=== PATIENT | female | born 1955 | race Caucasian/White ===

== ENCOUNTER 2020-10-21 11:06 | Outpatient (REF) | payer MEDICARE, OTHER, SELFPAY ==
[2020-10-21 11:24] LABS: MANUAL DIFF FLAG NO
[2020-10-21 12:04] LABS: Basophils Percent Auto 0.2 % (0-2); Eosinophils Absolute Auto 0.1 X10*3/uL (0.0-0.4); Hematocrit 40.4 % (37-47); Hemoglobin 12.9 g/dl (12.0-16.0); Imm Gran Abs Auto 0.01 X10*3/uL (0.00-0.03); Imm Gran Pct Auto 0.2 % (0.0-0.4); Lymphocytes Absolute Auto 2.1 X10*3/uL (1.2-4.9); Lymphocytes Percent Auto 48.8 % (20-40); Mean Corpuscular HGB Conc 31.9 g/dl (31.0-35.0); Mean Corpuscular Hemoglobin 30.2 pg (27.0-33.0); Mean Corpuscular Volume 94.6 fL (80-98); Monocytes Absolute Auto 0.3 X10*3/uL (0.1-1.2); Monocytes Percent Auto 5.8 % (2-11); Neutrophils Absolute Auto 1.8 X10*3/uL (2.0-8.3); Platelet Count 230 X10*3/uL (160-400); Red Blood Count 4.27 X10*6/uL (4.20-5.50); Red Cell Distribution Width 13.2 % (11.0-16.0); White Blood Count 4.3 X10*3/uL (4.8-10.8)
[2020-10-21 12:37] LABS: Glucose Urine UA NEG (NEG); Leukocyte Esterase Urine NEG (NEG); Nitrite Urine NEG (NEG); PH 7.5 (5.0-8.0); Urine Blood NEG (NEG); Urine Ketones NEG (NEG); Urine Protein NEG (NEG-TRACE)
[2020-10-21 12:40] LABS: Appearance Urine HAZY; Color Urine YELLOW
[2020-10-21 12:51] LABS: Alanine Aminotransferase 13 U/L (0-31); Albumin Level 4.1 g/dL (3.5-5.0); Alkaline Phosphatase 62 U/L (39-117); Anion Gap 11 (12-20); Aspartate Amino Transferase 17 U/L (5-31); Bilirubin Total 0.6 mg/dL (0.0-1.0); Blood Urea Nitrogen 12 mg/dL (9-16); Calcium 8.8 mg/dL (8.4-10.2); Carbon Dioxide 29 mmol/L (22-29); Chloride 107 mmol/L (96-108); Cholesterol 212 mg/dL; Estimated Glomerular Filt Rate > 60; Glucose Fasting 71 mg/dL (60-99); HDL Cholesterol 81 mg/dL; LDL Cholesterol Calculated 118 mg/dl; Potassium 4.1 mmol/L (3.3-5.1); Sodium 143 mmol/L (135-145); Total Protein 6.5 g/dL (6.5-8.0); Triglycerides 68 mg/dL
[2020-10-21 12:54] LABS: Vitamin D 25-OH Total 34.2 ng/mL (>30)
== END 2020-10-21 11:07 | disposition home or self-care (01) ==
LOC: HO.LNP 11:06
PROVIDERS: Visit Provider Internal Medicine
DX: D72.820 Lymphocytosis (symptomatic) (principal); E55.9 Vitamin D deficiency, unspecified
CPT/HCPCS: 80053; 80061; 81003; 82306; 85025

== ENCOUNTER 2021-03-10 06:20 | Day surgery (SDC) | payer MEDICARE, OTHER, SELFPAY ==
--- NOTE | 2021-03-07 08:12 | P.CONAN_ITS ---
Documented by User: Elle Melton NP 03/07/21 08:13 HPI - Anesthesia Eval Consult details Narrative: 65yo F for Upper Endoscopy with Balloon Dilation and Colonoscopy PMFSH Past Medical History Medical History Hiatal hernia Interstitial cystitis Osteoarthritis Osteopenia Vertigo Vitamin D deficiency Surgical History Surgical History History of esophagogastroduodenoscopy (EGD) Hx of colonoscopy Hx of hysterectomy Social History Social History Patient Tobacco Use Status: Former Tobacco user Use of substances other than those prescribed or required for medical reasons: No Are you DNR?: No Advance Directives: No Advance Directives Information Provided: Yes Meds Allergies Allergy/AdvReac Type Severity Reaction Status Date / Time meperidine [From Demerol] Allergy Unknown Verified 01/06/21 15:39 Home Medications Medication Instructions Recorded Confirmed Last Taken Type cholecalciferol (vitamin D3) 50 50 mcg PO DAILY 01/06/21 01/06/21 Unknown History mcg (2,000 unit) capsule (Vitamin D3) docusate sodium 100 mg capsule 100 mg PO DAILY 01/06/21 01/06/21 Unknown History (Colace) ibuprofen 200 mg tablet (Advil) 400 mg PO Q8H PRN 01/06/21 01/06/21 Unknown History meclizine 25 mg tablet 25 mg PO BID PRN 01/06/21 01/06/21 Unknown History Exam Exam Date and Time: March 07, 2021 0812 Pertinent Lab Results Pertinent Lab Results: Laboratory Tests 10/21/20 10/21/20 Unknown Unknown WBC 4.3 L Hgb 12.9 Hct 40.4 Plt Count 230 Sodium 143 Potassium 4.1 Chloride 107 Carbon Dioxide 29 BUN 12 Creatinine 0.63 Assessment and Plan Assessment Anesthesia Assessment: Chart Reviewed Documented by User: Shelly Dior MD 03/10/21 07:31 COUNT INCLUDES THE [facility] Past Medical History Medical History Hiatal hernia Interstitial cystitis Osteoarthritis Osteopenia Vertigo Vitamin D deficiency Surgical History Surgical History History of esophagogastroduodenoscopy (EGD) Hx of colonoscopy Hx of hysterectomy History of Problems with Anesthesia: No Social History Social History Patient Tobacco Use Status: Former Tobacco user Use of substances other than those prescribed or required for medical reasons: No Are you DNR?: No Advance Directives: No Advance Directives Information Provided: Yes Meds Allergies Allergy/AdvReac Type Severity Reaction Status Date / Time meperidine [From Demerol] Allergy Unknown Verified 01/06/21 15:39 Home Medications Medication Instructions Recorded Confirmed Last Taken Type cholecalciferol (vitamin D3) 50 50 mcg PO DAILY 01/06/21 01/06/21 Unknown History mcg (2,000 unit) capsule (Vitamin D3) docusate sodium 100 mg capsule 100 mg PO DAILY 01/06/21 01/06/21 Unknown History (Colace) ibuprofen 200 mg tablet (Advil) 400 mg PO Q8H PRN 01/06/21 01/06/21 Unknown History meclizine 25 mg tablet 25 mg PO BID PRN 01/06/21 01/06/21 Unknown History Exam Airway Mallampati Class: II TM Dist: >3cm Neck ROM: Full Heart: RRR Lungs: CTA Assessment and Plan Assessment Anesthesia Assessment: Anesthesia Plan Discussed Final Anesthetic Review History of Problems with Anesthesia: No NPO: Yes ASA Class: II Final Preanesthetic Review: Meds/Allgs Chart Reviewed, Consent Obtained/Reviewed and Anes Risks/Benef Reviewed Patient Risk: Low Procedure Risk: Intermediate Anesthetic Plan Anesthetic Plan: MAC: Disposition: Standard PACU
[2021-03-10 06:38] VITALS: BP 107/71; PULSE 90; RESP 16; TEMP 36.4; O2SAT 97; BMI 26.5
[2021-03-10] MEDS: Sodium Phosphate,Mono-Dibasic 133 ML ENEMA PR ×2 (06:48→07:02)
[2021-03-10] MEDS: Lactated Ringers 1,000 ML 100 ML IVCONT (07:16)
[2021-03-10 08:40] VITALS: BP 91/59; PULSE 78; RESP 18; TEMP 36.1; O2SAT 100
--- NOTE | 2021-03-10 08:46 | P.BOP_ITS ---
Brief Operative Note Date of Service: 03/10/21 Pre-op diagnosis: Dysphagia, Screening Post-op diagnosis: other (Hiatal hernia, Colon polyps) Procedure: EGD with Balloon dilation and biopsies, Colonoscopy to cecum and TI with bx/removal of polyps Surgeon: Sameer Orozco Anesthesia: MAC Was an Floor Care Specialist used for this Procedure?: No Estimated blood loss (mL): 4.0 Pathology: other (A. Esophagus at 25cm B. Cecal polyp C. Ascending colon polyp D. Polyp at 20cm) Condition: stable Disposition: PACU
[2021-03-10 08:55] VITALS: BP 108/67; PULSE 72; RESP 16; TEMP 36.3; O2SAT 99
--- NOTE | 2021-03-10 11:41 | OP_ITS ---
SURGEON: Sameer Orozco MD INDICATIONS: The patient presents for evaluation of intermittent dysphagia and colorectal cancer screening. Full consent has been obtained from her for this, including risks of bleeding and perforation. PREOPERATIVE DIAGNOSIS: POSTOPERATIVE DIAGNOSIS: PROCEDURE PERFORMED: Esophagogastroduodenoscopy with balloon dilation of gastroesophageal junction, and biopsies, and colonoscopy to the cecum and terminal ileum with biopsy and removal of polyps. ESTIMATED BLOOD LOSS: COMPLICATIONS: ANESTHESIA: Monitored anesthesia care. ASSISTANTS: SPECIMENS: PREOPERATIVE DIAGNOSES: Dysphagia and colorectal cancer screening. POSTOPERATIVE DIAGNOSES: Dysphagia and colorectal cancer screening, rule out eosinophilic esophagitis, small hiatal hernia, colon polyps, diverticulosis and internal hemorrhoids. DESCRIPTION OF PROCEDURE: The patient was placed in the left lateral decubitus position. The Olympus video gastroscope was passed in the posterior oropharynx and upper esophagus under direct vision. The scope was passed slowly into the distal esophagus. The esophagus was somewhat tortuous. The gastroesophageal junction appeared at 35 cm. There was no sign of any stricture nor esophagitis. The scope entered into the stomach. There was a small hiatal hernia. The scope was advanced to pylorus and the duodenum was cannulated to the descending portion. The duodenum including the bulb appeared normal without mass or ulceration. The scope was withdrawn back into the stomach. The gastric antrum and body appeared normal with good peristalsis. Scope was retroflexed visualizing the proximal stomach carefully which appeared normal, without any sign of mass or ulceration. The scope was straightened and withdrawn back into the esophagus. Given her symptomatology, I did use a [employer] incremental balloon to dilate the gastroesophageal junction from 18 mm to 19 mm to 20 mm at the recommended pressures for between 30 and 60 seconds each. There was some heme noted post dilation. The scope was withdrawn through the remainder of the esophagus. Again, the esophagus appeared somewhat tortuous. Biopsies were obtained at 25 cm. There was no evidence of any proximal esophageal rings. Scope was withdrawn from the patient. She was turned around for the colonoscopy. The digital rectal exam revealed no abnormalities. The Olympus video pediatric colonoscope was entered into the rectum and advanced easily to the cecum. Once in the cecum, I did identify normal-appearing cecal pouch other than a 3 mm polyp, which was biopsied and completely removed with cold biopsy forceps. The terminal ileum was cannulated and appeared normal. Scope was withdrawn back in the colon. The remainder of the cecum appeared normal. Scope was then slowly withdrawn assessing all mucosal surfaces carefully. Preparation was excellent. In the proximal ascending colon, was a flat approximately 3 or 4 mm polyp, which was biopsied and completely removed with cold biopsy forceps. At 20 cm, was a flat 3 mm polyp, which was biopsied and completely removed with cold biopsy forceps as well. I did not visualize any other polyps, colitis, nor angiodysplasia. There was a mild amount of sigmoid diverticulosis. In the rectum, scope was retroflexed visualizing internal hemorrhoids, but no other pathology. The rectal mucosa appeared normal. The scope was straightened out and withdrawn from the patient. She tolerated both procedures well and was returned to recovery area in stable condition. IMPRESSION: 1. Small hiatal hernia. 2. Rule out eosinophilic esophagitis. 3. Status post balloon dilation of gastroesophageal junction. 4. Colon polyps, status post biopsy and removal. 5. Diverticulosis. 6. Internal hemorrhoids. PLAN: The results of the biopsies will be checked. I would recommend a repeat colonoscopy in 5 years given her family history. I will give her a prescription to start omeprazole 20 mg daily. She was advised not to use any aspirin and NSAIDs for 1 week. Depending upon her clinical course in regard to dysphagia, she may need further evaluation with esophageal motility studies. This has been discussed with her . MD CHANTELL Merida/ROSLYN / [phone]
== END 2021-03-10 09:30 | disposition home or self-care (01) ==
PROVIDERS: PCP Internal Medicine; Visit Provider Internal Medicine
PROC: (CPT 45380; principal; 2021-03-10 07:30)
PROC: 0DJD8ZZ Inspection of Lower Intestinal Tract, Via Natural or Artificial Opening Endoscopic (ICD-10-PCS; CPT 45378; 2021-03-10 07:30)
DX: Z12.11 Encounter for screening for malignant neoplasm of colon (principal); M85.80 Other specified disorders of bone density and structure, unspecified site; Z80.0 Family history of malignant neoplasm of digestive organs; D12.0 Benign neoplasm of cecum; D12.2 Benign neoplasm of ascending colon; K63.5 Polyp of colon; K57.30 Diverticulosis of large intestine without perforation or abscess without bleeding; K64.8 Other hemorrhoids; R13.10 Dysphagia, unspecified; K22.8 Other specified diseases of esophagus; K44.9 Diaphragmatic hernia without obstruction or gangrene; E55.9 Vitamin D deficiency, unspecified; Z79.899 Other long term (current) drug therapy
CPT/HCPCS: 45380; 43249; 43239; 88305; C1726

== ENCOUNTER 2021-09-03 08:15 | Outpatient (REF) | payer MEDICARE, OTHER, SELFPAY ==
--- NOTE | ~2021-09-03 | FL_ITS ---
EXAMINATION: FL BARIUM SWALLOW CLINICAL INFORMATION: Esophageal dysphagia. COMPARISON: None. TECHNIQUE: Barium swallow examination is performed using fluoroscopic evaluation in addition to multiple fluoroscopic spot views. The patient is imaged both upright using both thick barium and solid food. Fluoroscopy time: 2.6 minutes DAP: 11.818 Gycm2 Images: 61 FINDINGS: Following oral administration of thick barium and barium-coated turkey, there is normal propagation of bolus from the oral cavity through the upper esophagus and into the mid and distal esophagus. There are arrhythmic or standardized cysts in the mid and the distal esophagus resulting in corkscrew appearance of the mid and distal esophagus, resulting in retention of a moderate amount of food and thick barium. The gastroesophageal junction is patent without any narrowing. On administration of barium tablet with water, there is spontaneous passage through the esophagus into stomach. FL/FL barium swallow IMPRESSION: Findings consistent with presbyesophagus with abundant tertiary peristalsis in the mid and the distal esophagus and a corkscrew appearance of the esophagus. The GE junction is widely patent. No obstructing or constricting lesions seen.
== END 2021-09-03 08:16 | disposition home or self-care (01) ==
LOC: HO.XRAY 08:15
PROVIDERS: PCP Internal Medicine; Visit Provider Internal Medicine
DX: R13.10 Dysphagia, unspecified (principal)
CPT/HCPCS: 74220

== ENCOUNTER 2021-10-28 10:59 | Outpatient (REF) | payer MEDICARE, OTHER, SELFPAY ==
[2021-10-28 11:03] LABS: MANUAL DIFF FLAG NO
[2021-10-28 11:06] LABS: Basophils Percent Auto 0.3 % (0-2); Eosinophils Absolute Auto 0.2 X10*3/uL (0.0-0.4); Eosinophils Percent Auto 3.9 % (0-4); Hematocrit 42.2 % (37.0-47.0); Imm Gran Abs Auto 0.01 X10*3/uL (0.00-0.03); Imm Gran Pct Auto 0.3 % (0.0-0.4); Lymphocytes Absolute Auto 1.6 X10*3/uL (1.2-4.9); Lymphocytes Percent Auto 41.8 % (20-40); Mean Corpuscular HGB Conc 30.8 g/dl (31.0-35.0); Mean Corpuscular Hemoglobin 29.3 pg (27.0-33.0); Mean Platelet Volume 10.6 fL (9.4-12.3); Monocytes Absolute Auto 0.3 X10*3/uL (0.1-1.2); Monocytes Percent Auto 6.8 % (2-11); Neutrophils Absolute Auto 1.8 x10*3/uL (2.0-8.3); Neutrophils Percent Auto 46.9 % (45-73); Platelet Count 236 X10*3/uL (160-400); Red Blood Count 4.44 X10*6/uL (4.20-5.50); Red Cell Distribution Width 13.2 % (11.0-16.0); White Blood Count 3.8 X10*3/uL (4.8-10.8)
[2021-10-28 11:22] LABS: Alanine Aminotransferase 10 U/L (0-31); Albumin Level 4.1 g/dL (3.5-5.0); Alkaline Phosphatase 66 U/L (39-117); Anion Gap 12 (12-20); Aspartate Amino Transferase 15 U/L (5-31); Bilirubin Total 0.5 mg/dL (0.0-1.0); Blood Urea Nitrogen 10 mg/dL (9-16); Calcium 9.5 mg/dL (8.4-10.2); Carbon Dioxide 29 mmol/L (22-29); Chloride 107 mmol/L (96-108); Cholesterol 229 mg/dL; Estimated Glomerular Filt Rate > 60; Glucose Fasting 80 mg/dL (60-99); HDL Cholesterol 82 mg/dL; LDL Cholesterol Calculated 138 mg/dl; Potassium 4.7 mmol/L (3.3-5.1); Sodium 143 mmol/L (135-145); Total Protein 6.6 g/dL (6.5-8.0); Triglycerides 49 mg/dL
[2021-10-28 11:34] LABS: Vitamin D 25-OH Total 36.6 ng/mL (>30)
[2021-10-28 12:00] LABS: Appearance Urine CLEAR; Color Urine YELLOW; Glucose Urine UA NEG (NEG); Leukocyte Esterase Urine NEG (NEG); Nitrite Urine NEG (NEG); Specific Gravity - Urine >= 1.030 (1.005-1.025); Urine Blood NEG (NEG); Urine Ketones NEG (NEG); Urine Protein NEG (NEG-TRACE)
== END 2021-10-28 11:00 | disposition home or self-care (01) ==
LOC: HO.LNP 10:59
PROVIDERS: Visit Provider Internal Medicine
DX: D72.820 Lymphocytosis (symptomatic) (principal); E55.9 Vitamin D deficiency, unspecified
CPT/HCPCS: 80053; 80061; 81003; 82306; 85025

== ENCOUNTER 2021-11-26 12:16 | Outpatient (REF) | payer MEDICARE, OTHER, SELFPAY ==
[2021-11-26 12:50] LABS: COVID-19 Test Positive (Negative)
== END 2021-11-26 12:17 | disposition home or self-care (01) ==
LOC: HO.LAB 12:16
PROVIDERS: Visit Provider Internal Medicine
DX: Z20.822 Contact with and (suspected) exposure to COVID-19 (principal)
CPT/HCPCS: 87635; C9803

== ENCOUNTER 2022-03-13 09:46 | Outpatient (REF) | payer MEDICARE, OTHER, SELFPAY ==
--- NOTE | ~2022-03-13 | XR_ITS ---
EXAMINATION: XR RIBS, LEFT, PA CHEST CLINICAL INFORMATION: Left anterior rib pain since fall 2.5 months ago. COMPARISON: 09/25/2019 chest radiographs. TECHNIQUE: 3 views of the left ribs were obtained along with a PA view of the chest. Skin marker overlies the anteroinferior left ribs. FINDINGS: Lungs are clear. No consolidation, pneumothorax, or pleural effusion. The cardiomediastinal silhouette and pulmonary vasculature are normal. Osseous structures are unremarkable. Ribs are intact. No fractures are identified. XR/XR ribs LT min 3V w CXR1V IMPRESSION: Unremarkable examination.
== END 2022-03-13 09:47 | disposition home or self-care (01) ==
LOC: HO.XRAY 09:46
PROVIDERS: PCP Internal Medicine; Visit Provider Internal Medicine
DX: S22.32XA Fracture of one rib, left side, initial encounter for closed fracture (principal)
CPT/HCPCS: 71101

== ENCOUNTER 2022-04-07 10:44 | Outpatient (REF) | payer MEDICARE, OTHER, SELFPAY ==
--- NOTE | ~2022-04-07 | MM_ITS ---
EXAMINATION: BONE DENSITOMETRY CLINICAL INDICATION: Osteoporosis. COMPARISON: Previous BD dated 03/12/2020 and baseline BD dated 07/23/2005. TECHNIQUE: Using a [employer] DXA System (software version: 13.1) manufactured by [employer], dual-energy x-ray absorptiometry was performed of the lumbar spine and left hip. The images are of good technical quality. Summary results are attached. FINDINGS: AP SPINE L1-L4: Current: BMD 1.101 g/cm2, Z-score 1.0, T-score -0.7, normal, 1.5% decrease from previous, 20.4% decrease from baseline (<5% change is not significant). Prior: BMD 1.118 g/cm2. Baseline: BMD 1.383 g/cm2. LEFT FEMUR, NECK: Current: BMD 0.941 g/cm2, Z-score 0.9, T-score -0.7, normal. Prior: BMD 0.924 g/cm2. Baseline: BMD 1.111 g/cm2. LEFT FEMUR, TOTAL: Current: BMD 0.784 g/cm2, Z-score -0.4, T-score -1.8, osteopenia, 4.0% decrease from previous, 23.3% decrease from baseline (<5% change is not significant). Prior: BMD 0.817 g/cm2. Baseline: BMD 1.022 g/cm2. IDENTIFIED RISK FACTORS: Early menopause, secondary osteoporosis, hysterectomy. HISTORY OF FRACTURE: None listed. MEDICATIONS: Vitamin D. MM/XR DEXA axial skeleton IMPRESSION: 1. DIAGNOSIS: Osteopenia based on the lowest T-score value of -1.8 in the total femur applying World Health Organization criteria. 2. 10-YEAR FRACTURE RISK PREDICTION, FRAX: Major osteoporotic fracture (clinical spine, forearm, hip or shoulder) 8.1%. Hip fracture 0.6%. 3. Treatment Recommendations: NOF guidelines recommend consideration for treatment in postmenopausal women and men age 50 and older presenting with the following: -A hip or vertebral (clinical or morphometric) fracture. -T-score less than or equal to -2.5 at the femoral neck or spine after appropriate evaluation to exclude secondary causes. -Low bone mass at the hip or spine and a 10-year fracture probability by FRAX of greater than or equal to 3% for hip fracture or greater than or equal to 20% for major osteoporotic fracture based on the [place] adapted WHO algorithm. 4. Other Recommendations: All treatment decisions require clinical judgment and consideration of individual patient factors, including patient preferences, comorbidities, previous drug use, risk factors not captured in the FRAX model (e.g. frailty, falls, vitamin D deficiency, increased bone turnover, interval significant decline in bone density) and possible under or overestimation of fracture risk by FRAX. Additional medical evaluation for secondary cause of low bone mineral density may be appropriate. FUTURE SCAN RECOMMENDATION: People with diagnosed cases of osteoporosis or at high risk for fracture should have regular bone mineral density tests. For patients eligible for Medicare, routine testing is allowed once every 2 years. The testing frequency can be increased to one year for patients who have rapidly progressing disease, those who are receiving or discontinuing medical therapy to restore bone mass, or have additional risk factors.
== END 2022-04-07 10:45 | disposition home or self-care (01) ==
LOC: HO.MAMMO 10:44
PROVIDERS: PCP Internal Medicine; Visit Provider Internal Medicine
DX: M81.0 Age-related osteoporosis without current pathological fracture (principal)
CPT/HCPCS: 77080

== ENCOUNTER 2022-05-22 09:32 | Outpatient (REF) | payer MEDICARE, OTHER, SELFPAY ==
--- NOTE | ~2022-05-22 | XR_ITS ---
EXAMINATION: XR PELVIS CLINICAL INFORMATION: Pain COMPARISON: Previous x-ray October 2017 TECHNIQUE: AP view of the pelvis. FINDINGS: Bone alignment is normal. No fracture or dislocation. Mild bilateral hip arthritis with small osteophytes and joint space narrowing. Bones of the pelvis are normal. Soft tissues are normal. XR/XR pelvis 1-2V IMPRESSION: Mild bilateral hip arthritis.
== END 2022-05-22 09:33 | disposition home or self-care (01) ==
LOC: HO.HOSX 09:32
PROVIDERS: Visit Provider Orthopaedic Surgery
DX: M70.62 Trochanteric bursitis, left hip (principal); M16.0 Bilateral primary osteoarthritis of hip
CPT/HCPCS: 71046; 72170; 99202

== ENCOUNTER 2022-05-22 14:36 | Outpatient (REF) | payer MEDICARE, OTHER, SELFPAY ==
--- NOTE | ~2022-05-22 | XR_ITS ---
EXAMINATION: XR CHEST CLINICAL INFORMATION: Persistent cough COMPARISON: Previous chest and left rib x-rays February 2022 TECHNIQUE: 2 views of the chest were obtained. FINDINGS: No significant abnormality is noted involving the heart, lungs, mediastinum, bony thorax or soft tissues. XR/XR chest 2V IMPRESSION: Unremarkable examination.
== END 2022-05-22 14:37 | disposition home or self-care (01) ==
LOC: HO.XRAY 14:36
PROVIDERS: PCP Internal Medicine; Visit Provider Internal Medicine
DX: Z13.89 Encounter for screening for other disorder (principal)
CPT/HCPCS: 71046

== ENCOUNTER 2022-11-06 11:07 | Outpatient (REF) | payer MEDICARE, OTHER, SELFPAY ==
[2022-11-06 11:10] LABS: MANUAL DIFF FLAG NO
[2022-11-06 11:47] LABS: Basophils Percent Auto 0.2 % (0-2); Eosinophils Absolute Auto 0.1 X10*3/uL (0.0-0.4); Eosinophils Percent Auto 3.2 % (0-4); Hematocrit 43.6 % (37.0-47.0); Hemoglobin 13.8 g/dl (12.0-16.0); Imm Gran Abs Auto 0.01 X10*3/uL (0.00-0.03); Imm Gran Pct Auto 0.2 % (0.0-0.4); Lymphocytes Absolute Auto 1.9 X10*3/uL (1.2-4.9); Lymphocytes Percent Auto 46.7 % (20-40); Mean Corpuscular HGB Conc 31.7 g/dl (31.0-35.0); Mean Corpuscular Hemoglobin 29.6 pg (27.0-33.0); Mean Corpuscular Volume 93.6 fL (80.0-98.0); Mean Platelet Volume 10.6 fL (9.4-12.3); Monocytes Absolute Auto 0.3 X10*3/uL (0.1-1.2); Monocytes Percent Auto 6.5 % (2-11); Neutrophils Absolute Auto 1.7 x10*3/uL (2.0-8.3); Neutrophils Percent Auto 43.2 % (45-73); Platelet Count 234 X10*3/uL (160-400); Red Blood Count 4.66 X10*6/uL (4.20-5.50); Red Cell Distribution Width 13.4 % (11.0-16.0)
[2022-11-06 11:49] LABS: Appearance Urine Clear; Color Urine Yellow; Glucose Urine UA Negative (Negative); Leukocyte Esterase Urine Negative (Negative); Nitrite Urine Negative (Negative); PH 5.5 (5.0-9.0); Urine Blood Negative (Negative); Urine Ketones Negative (Negative); Urine Protein Negative (Neg-Trace)
[2022-11-06 11:55] LABS: Bacteria Urine None Seen (None Seen); Hyaline Casts Urine 0-2 /LPF (0-2); RBC Urine 0-2 /HPF (0-2); Squamous Epithelial Cell Urine 0-2 /HPF (0-2); WBC Urine 0-5 /HPF (0-5)
[2022-11-06 12:07] LABS: Alanine Aminotransferase 9 U/L (0-31); Albumin Level 4.1 g/dL (3.5-5.0); Alkaline Phosphatase 67 U/L (39-117); Anion Gap 10 (12-20); Aspartate Amino Transferase 17 U/L (5-31); Bilirubin Total 0.6 mg/dL (0.0-1.0); Blood Urea Nitrogen 11 mg/dL (9-16); Calcium 9.2 mg/dL (8.4-10.2); Carbon Dioxide 30 mmol/L (22-29); Chloride 110 mmol/L (96-108); Cholesterol 238 mg/dL; Estimated Glomerular Filt Rate > 60; Glucose Fasting 76 mg/dL (60-99); HDL Cholesterol 82 mg/dL; LDL Cholesterol Calculated 144 mg/dl; Potassium 4.4 mmol/L (3.3-5.1); Sodium 146 mmol/L (135-145); Total Protein 6.5 g/dL (6.5-8.0); Triglycerides 61 mg/dL
[2022-11-06 12:25] LABS: Vitamin D 25-OH Total 45.2 ng/mL (>30)
== END 2022-11-06 11:08 | disposition home or self-care (01) ==
LOC: HO.LNP 11:07
PROVIDERS: Visit Provider Internal Medicine
DX: E55.9 Vitamin D deficiency, unspecified (principal); D72.820 Lymphocytosis (symptomatic); E78.9 Disorder of lipoprotein metabolism, unspecified
CPT/HCPCS: 80053; 80061; 81001; 82306; 85025

== ENCOUNTER 2023-07-02 12:11 | Outpatient (AMB) | payer MEDICARE, OTHER, SELFPAY ==
[2023-07-02 12:13] VITALS: BMI 25.6
--- NOTE | 2023-07-02 12:13 | A.OFFVIS_ITS ---
Intake Vital Signs 07/02/23 12:13 Height 5 ft 2 in Weight 140 lb BMI 25.6 Intake Visit Reasons: OV- Left Hip Bursitis Intake Note: Luis is a 68 year old female who presents today for a follow up of her left hip. Patient reports that she is having increased pain and difficult ROM. Painful with gait initiation and walking. She report a fall about 1 month ago landing on that side. She takes tylenol with advil for the day time and then advil at night. She also utilize heat application which feels good while it is on but pain returns once r emoved. Allergies meperidine [From Demerol] Allergy (Verified 05/22/22 10:46) Unknown HPI OV- Left Hip Bursitis HPI Details Luis is a 68 year old woman who returns for a follow up of her left hip pain. She now describes pain over her left thigh and lateral hip with stiffness. She has difficulty standing from a seated position and getting into and out of cars/bed. She signals that the pain radiates over her anterolateral thigh. She walks on even ground without pain.. She finds some relief from Tylenol, Advil, and heat, but her pain soon returns. She says her pain worsened after a fall ~1 month ago, landing on her left side. She was last see on 05/27/22 for a bursitis injection, and sent for PT. [facility] Medical History Hiatal hernia Interstitial cystitis Osteoarthritis Osteopenia Vertigo Vitamin D deficiency Surgical History History of esophagogastroduodenoscopy (EGD) Hx of colonoscopy Hx of hysterectomy Social History (Updated 05/22/22 @ 10:47 by Elaine Lopez CMA) Patient Tobacco Use Status: Former Tobacco user Current occupational status: retired Review of Systems Const All systems reviewed & are unremarkable except as noted in HPI and below Physical Exam Vital Signs: BMI result Body Mass Index 25.6 Const General: no acute distress, alert and awake Orientation/consciousness: patient oriented x3 HEENT Head: Yes normocephalic and Yes atraumatic Eyes EOM: EOMs intact bilaterally Resp Effort & Inspection: normal respiratory effort and able to speak in complete sentences Cardio Jugular venous distension: no JVD Skin General skin exam: turgor normal Rashes: no rashes Neuro General: patient oriented x3 Extrem Other: nl gait + impingement neg [employer] Appearance: grossly normal Affect: normal affect Attitude: cooperative Results Reviewed Results Reviewed: I personally reviewed relevant radiographs Mild symmetrical bilateral hip Osteoarthritis. Assessment & Plan Assessment & Plan (1) Bilateral hip joint arthritis: Code(s): M16.0 - Bilateral primary osteoarthritis of hip Plan: She has some stiffness on the left but little groin pain and although hyper adduction and IR reproduces discomfort this does not seem to reproduce her primary complaint (2) Lumbar radiculopathy: Code(s): M54.16 - Radiculopathy, lumbar region Plan: Her symptoms of radiating thigh pain have not improved with PT and bursal injection. I recommend MRI of lumbar spine. Plan Scribed for Reginald Islas MD by Agustin Leiva, medical research tech, on 07/02/23 at 1 2:25 PM, EST. Orders: Orders MR lumbar spine wo con Today M54.16 - Radiculopathy, lumbar region XR pelvis 1-2V 07/02/23 M25.559 - Pain in unspecified hip Coding Level of Care Code Est Pt Level 4 (78222) Diagnoses Bilateral hip joint arthritis M16.0 Lumbar radiculopathy M54.16
== END 2023-07-02 12:44 | disposition home or self-care (01) ==
PROVIDERS: PCP Internal Medicine; Visit Provider Orthopaedic Surgery
DX: M16.0 Bilateral primary osteoarthritis of hip (principal); M54.16 Radiculopathy, lumbar region
CPT/HCPCS: 99214

== ENCOUNTER 2023-07-02 12:11 | Outpatient (REF) | payer MEDICARE, OTHER, SELFPAY ==
--- NOTE | ~2023-07-02 | XR_ITS ---
EXAMINATION: XR PELVIS CLINICAL INFORMATION: Pelvic and hip pain COMPARISON: X-ray pelvis on 05/22/2022 TECHNIQUE: AP view of the pelvis. FINDINGS: BONES: Bony structures are intact. Mild osteophytosis is seen in bilateral acetabular roof, more prominent on the right side. There is no focal bone destruction or periosteal reaction seen. JOINTS: Alignment of joints is normal. SOFT TISSUE: Soft tissue is normal. No radiopaque foreign body or abnormal air collection is seen. XR/XR pelvis 1-2V IMPRESSION: 1. Normal x-rays of pelvis. No fracture or dislocation or signs of osteomyelitis are found. 2. Unchanged mild bilateral hip osteoarthritis.
== END 2023-07-02 12:12 | disposition home or self-care (01) ==
LOC: HO.HOSX 12:11
PROVIDERS: PCP Internal Medicine; Visit Provider Orthopaedic Surgery
DX: M16.0 Bilateral primary osteoarthritis of hip (principal)
CPT/HCPCS: 72170; 99212

== ENCOUNTER 2023-09-12 14:17 | Outpatient (REF) | payer MEDICARE, OTHER, SELFPAY ==
--- NOTE | ~2023-09-12 | MR_ITS ---
EXAMINATION: MR LUMBAR SPINE WITHOUT CONTRAST CLINICAL INFORMATION: Left leg radiculopathy. Low back pain. COMPARISON: Abdominal MRI dated 11/01/2007. TECHNIQUE: Multiplanar, multisequence imaging was obtained. FINDINGS: VERTEBRAL BODIES AND PARASPINAL STRUCTURES: The marrow signal is mildly heterogeneous with regions of fatty change. There is a 1.3 cm intraosseous hemangioma in the T12 vertebral body. Mild anterolisthesis noted at the L4-L5 level with a mild posterior subluxation at the L3-L4 level. There are no compression fractures. The paraspinal soft tissues appear normal. There are mild degenerative changes of the sacroiliac joints bilaterally. There is a small exophytic 1 cm T1/T2 hyperintense lesion arising from the posteroinferior right renal cortex which may represent a small angiomyolipoma or a complex cyst. A new, round encapsulated 1.3 cm exophytic lesion anteriorly at the lower pole of the right kidney demonstrates mild T2 hypointense signal centrally with peripheral T2 hyperintensity. A large 5.3 cm heterogeneous lesion partially visualized in the liver parenchyma on the localizer acquisition corresponds to a giant hemangioma described on prior abdominal MR imaging from 11/01/2007. Assessment for any interval changes is limited on the basis of this nondiagnostic acquisition. CONUS MEDULLARIS AND CAUDA EQUINE: The distal cord, conus tip, and cauda equina nerve roots are normal. Incidental Tarlov cysts are visible in the lower sacral neural foramina with mild bony remodeling. SPINAL LEVELS: L1-L2 and L2-L3: No disc pathology, central canal stenosis, or foraminal narrowing. [id number] facet arthropathy at the L2-L3 level. L3-L4: Posterior subluxation and broad-based central to left subarticular zone disc protrusion moderately distorts the thecal sac and compresses the left L4 nerve root. Moderate facet arthropathy and moderate central canal stenosis evident with mild foraminal narrowing. L4-L5: Mild anterolisthesis and diffuse disc bulge with advanced facet arthropathy and thickening of the ligamentum flavum. Findings result in severe central canal stenosis and thecal sac compression. Bulging disc and facet spurring with mild bilateral foraminal encroachment. L5-S1: No significant disc pathology. Advanced facet arthropathy encroaching upon the subarticular zones. Mild central canal stenosis. Patent neural foramina bilaterally. MR/MR lumbar spine wo con IMPRESSION: Mild anterolisthesis and broad-based disc bulge with advanced facet arthropathy at the L4-L5 level resulting in high-grade central canal stenosis and thecal sac compression. Mild posterior subluxation and broad-based central to left subarticular zone disc protrusion at the L3-L4 level moderately distorting the thecal sac and compressing left L4 nerve root. Hypertrophic facet arthropathy and moderate central canal stenosis at this level. Severe facet degeneration at the L5-S1 level with mild central canal stenosis. Partially visualized large 5.3 cm heterogeneous lesion in the liver parenchyma which corresponds to a previously described giant hemangioma on abdominal MR imaging from 11/01/2007. Assessment for any interval changes cannot be made on the basis of this nondiagnostic acquisition. Indeterminate 1 cm exophytic right renal lesion, potentially representing a small angiomyolipoma or complex cyst. Additional new 1.3 cm heterogeneous lesion in the anterior lower pole of the right kidney, possibly representing a complex cyst. A follow-up abdominal MRI without and with contrast to include evaluation of the liver and right kidney lesions is recommended for further evaluation. Imaging findings reported to AN Magaña in Dr. Islas's office at 1:58 PM on 09/14/2023.
== END 2023-09-12 14:18 | disposition home or self-care (01) ==
LOC: HO.MRI 14:17
PROVIDERS: PCP Internal Medicine; Visit Provider Orthopaedic Surgery
DX: M54.16 Radiculopathy, lumbar region (principal)
CPT/HCPCS: 72148

== ENCOUNTER 2023-10-13 11:03 | Outpatient (REF) | payer MEDICARE, OTHER, SELFPAY ==
--- NOTE | ~2023-10-13 | MR_ITS ---
EXAMINATION: MR ABDOMEN WITHOUT AND WITH CONTRAST CLINICAL INFORMATION: Renal lesion COMPARISON: MRI abdomen 11/01/2007, MRI lumbar spine 09/12/2023 TECHNIQUE: MRI of the abdomen before and after the IV administration of 6.5 mL of Gadavist was obtained using routine sequences. FINDINGS: LUNG BASES: The visualized lung bases are unremarkable. KIDNEYS AND URETERS: Bosniak 1 bilateral renal cysts, no follow-up imaging recommended. A 1.1 cm T2 bright right lower pole renal lesion corresponding to an area of concern on prior MR lumbar spine saturates out on fat suppressed sequences compatible with an angiomyolipoma. A 1.1 cm right lower pole renal lesion which demonstrates some heterogeneous T2 bright signal and rim enhancement and an enhancing thickened internal septation measuring 4 mm although the differential consideration would include an enhancing nodule. GALLBLADDER: Cholelithiasis without evidence of acute cholecystitis. LIVER AND BILIARY TREE: Numerous T2 bright hepatic cysts and T2 bright liver lesions with discontinuous peripheral nodular enhancement and gradual filling compatible with hemangiomas. A 0.8 cm arterial hyperenhancing liver lesion in the periphery of the right hepatic lobe, 100:69 and is isointense on the remainder of phases favoring a transient hepatic intensity difference, favored to be subtly present on prior, (7:71 on prior) not significantly changed previously 7 mm. No intra or extrahepatic biliary duct dilatation. PANCREAS: Unremarkable SPLEEN: Unremarkable ADRENAL GLANDS: Unremarkable GASTROINTESTINAL TRACT: Small hiatal hernia. LYMPH NODES: No lymphadenopathy. VASCULAR: Unremarkable ABDOMINAL WALL: Small fat-containing umbilical hernia. OSSEOUS STRUCTURES: Incidentally noted sacral Tarlov cyst. T2 bright lesion in the T12 vertebral body which again may reflect a hemangioma. MR/MR abdomen wo/w con IMPRESSION: 1. A 1.1 cm right lower pole renal lesion which demonstrates rim enhancement and an enhancing thickened internal septation measuring 4 mm although the differential consideration would include an enhancing nodule, and therefore may reflect a Bosniak 3 cystic renal mass, intermediate probability of malignancy, versus bosniak 4 cystic renal mass, probable for malignancy, and recommend urologic evaluation and management. 2. A 0.8 cm arterial hyperenhancing liver lesion in the periphery of the right hepatic lobe is favored to reflect a transient hepatic intensity difference, and favored to be similar to prior. 3. Cholelithiasis without evidence of acute cholecystitis. The findings and recommendations were discussed with Dr. Timoteo Hernandez by telephone at 10/18/2023 1:20 PM and it was ascertained that the content and urgency of the report was understood at the time of direct communication.
[2023-10-13] MEDS: gadobutroL 7.5 ML VIAL IVPUSH (11:55)
== END 2023-10-13 11:04 | disposition home or self-care (01) ==
LOC: HO.MRI 11:03
PROVIDERS: PCP Internal Medicine; Visit Provider Internal Medicine
DX: N28.9 Disorder of kidney and ureter, unspecified (principal)
CPT/HCPCS: 74183; A9585

== ENCOUNTER 2023-11-08 11:14 | Outpatient (REF) | payer MEDICARE, OTHER, SELFPAY ==
[2023-11-08 11:18] LABS: MANUAL DIFF FLAG NO
[2023-11-08 11:26] LABS: Basophils Percent Auto 0.3 % (0-2); Eosinophils Absolute Auto 0.1 X10*3/uL (0.0-0.4); Eosinophils Percent Auto 3.7 % (0-4); Hematocrit 42.6 % (37.0-47.0); Hemoglobin 13.6 g/dl (12.0-16.0); Imm Gran Abs Auto 0.01 X10*3/uL (0.00-0.03); Imm Gran Pct Auto 0.3 % (0.0-0.4); Lymphocytes Absolute Auto 1.7 X10*3/uL (1.2-4.9); Lymphocytes Percent Auto 44.1 % (20-40); Mean Corpuscular HGB Conc 31.9 g/dl (31.0-35.0); Mean Corpuscular Hemoglobin 29.8 pg (27.0-33.0); Mean Corpuscular Volume 93.4 fL (80.0-98.0); Mean Platelet Volume 10.4 fL (9.4-12.3); Monocytes Absolute Auto 0.3 X10*3/uL (0.1-1.2); Monocytes Percent Auto 6.8 % (2-11); Neutrophils Absolute Auto 1.7 x10*3/uL (2.0-8.3); Neutrophils Percent Auto 44.8 % (45-73); Platelet Count 232 X10*3/uL (160-400); Red Blood Count 4.56 X10*6/uL (4.20-5.50); Red Cell Distribution Width 13.1 % (11.0-16.0); White Blood Count 3.8 X10*3/uL (4.8-10.8)
[2023-11-08 11:27] LABS: Appearance Urine Clear; Color Urine Yellow; Glucose Urine UA Negative (Negative); Leukocyte Esterase Urine Negative (Negative); Nitrite Urine Negative (Negative); Urine Blood Negative (Negative); Urine Ketones Negative (Negative); Urine Protein Negative (Neg-Trace)
[2023-11-08 11:30] LABS: Bacteria Urine None Seen (None Seen); Hyaline Casts Urine 0-2 /LPF (0-2); RBC Urine 0-2 /HPF (0-2); Squamous Epithelial Cell Urine 0-2 /HPF (0-2); WBC Urine 0-5 /HPF (0-5)
[2023-11-08 11:50] LABS: Alanine Aminotransferase 8 U/L (0-31); Albumin Level 4.1 g/dL (3.5-5.0); Alkaline Phosphatase 64 U/L (39-117); Anion Gap 9 (12-20); Aspartate Amino Transferase 15 U/L (5-31); Bilirubin Total 0.5 mg/dL (0.0-1.0); Blood Urea Nitrogen 12 mg/dL (9-16); Calcium 9.3 mg/dL (8.4-10.2); Carbon Dioxide 29 mmol/L (22-29); Chloride 108 mmol/L (96-108); Cholesterol 239 mg/dL (<200); Estimated Glomerular Filt Rate > 60; Glucose Fasting 79 mg/dL (60-99); HDL Cholesterol 76 mg/dL (>40); LDL Cholesterol Calculated 148 mg/dL (<100); Potassium 3.8 mmol/L (3.3-5.1); Sodium 142 mmol/L (135-145); Total Protein 6.8 g/dL (6.5-8.0); Triglycerides 77 mg/dL (<150)
[2023-11-08 12:07] LABS: Vitamin D 25-OH Total 67.4 ng/mL (>30)
== END 2023-11-08 11:15 | disposition home or self-care (01) ==
LOC: HO.LNP 11:14
PROVIDERS: Visit Provider Internal Medicine
DX: D72.820 Lymphocytosis (symptomatic) (principal); E55.9 Vitamin D deficiency, unspecified
CPT/HCPCS: 80053; 80061; 81001; 82306; 85025

== ENCOUNTER 2024-09-21 10:23 | Outpatient (AMB) | payer MEDICARE, OTHER, SELFPAY ==
--- NOTE | 2024-09-21 10:55 | MHC.OFFVIS ---
Intake Visit Reasons: OV-LT Hip OA - increased pain Intake Note: Luis is a 69 year old female who presents today for a follow up of her left hip OA. Patient was last seen in 2022. She reports that she has had increasing pain of the left hip with difficulty weight bearing. Patient reports that she typically walks two miles but is now having pain after one mile, increased pain with climbing stairs, and when laying on the left side. Her symptoms have been increasing since about May 2024. No injury. Allergies meperidine [From Demerol] Allergy (Verified 09/21/24 10:55) Unknown HPI HPI OV-LT Hip OA - increased pain: Details: 69 yo F with left lateral hip pain. She had brief benefit from injection. Complains of pain with stairs and standing from a seated position. Pain extends from lateral hip to lateral knee. Denies groin pain. PFSH Medical History Hiatal hernia Interstitial cystitis Osteoarthritis Osteopenia Vertigo Vitamin D deficiency Surgical History History of esophagogastroduodenoscopy (EGD) Hx of colonoscopy Hx of hysterectomy Social History (Updated 05/22/22 @ 10:47 by Elaine Lopez CMA) Patient Tobacco Use Status: Former Tobacco user Current occupational status: retired Physical Exam Extrem Other: TTP left ITB and greater troch. No groin pain with hip ROM Assessment & Plan Assessment & Plan (1) Trochanteric bursitis of left hip: Code(s): M70.62 - Trochanteric bursitis, left hip Category: Medical Plan: PT. No surgical intervention warranted and injections have not been helpful. (2) Iliotibial band syndrome affecting left lower leg: Code(s): M76.32 - Iliotibial band syndrome, left leg Category: Medical Plan: PT Orders: Orders XR pelvis 1-2V 09/21/24 M25.559 - Pain in unspecified hip Coding Level of Care Code Est Pt Level 3 (17463) Diagnoses Trochanteric bursitis of left hip M70.62 Iliotibial band syndrome affecting left lower leg M76.32
--- OUTSIDE RECORDS SUMMARY | 2024-09-21 12:19 | XMS_ITS ---
Author Organization Timoteo Hernandez MD Address [address] [place] [phone] Care Team Providers Care Retail Presentation Specialist Name Role Phone Timoteo Hernandez Primary Care Provider Allergies Allergen (clinical drug ingredient) Drug/Non Drug Allergy documented on EMR Reaction Allergy Type Onset Date Status meperidine Demerol dizzy nauseau Drug Allergy Ac tive REASON FOR VISIT 2 month go over her trip to [place] Medications Medication SIG (Take, Route, Frequency, Duration) Notes Start Date End Date Status Vitamin D3 2000 UNIT 1 tablet Orally Onc e a day 10/08/2017 Active Advil 200 MG 3 tabs Orally every 6 hrs Active Clobetasol Propionate 0.05 % 1 application Externally Twice a day for 10 day(s) Active Antivert 12.5 MG TAKE 1 TABLET BY PRISCILLA TH 3 TIMES A DAY for 13 Not-Taking Meclizine HCl 12.5 MG 1 tablet as needed Orally Once a day for 90 days Not-Taking Colace 100 MG 1 capsule Orally Onc e a day Active Problems Problem Type SNOMED Code ICD Code Onset Dates Problem Status W/U Status Risk Notes Problem 231584651 Right renal mass (N28.89) Active confirmed Vital Signs Blood pressure systolic 112 mm Hg 01/27/20 24 Blood pressure diastolic 60 mm Hg 024 Height 63 in 01/27/2024 Weight 142 lbs 01/27/2024 BMI 25.15 kg/m2 01/27/2024 Encounters Encounter Location Date Provider Diagnosis Timoteo Hernandez MD [address] [place] [address] [place] [phone] 01/27/2024 Timoteo Hernandez Right renal mass N28.89 Assessments Encounter Date Diagnosis (ICD Code) Assessment Notes Treatment Notes Treatment Clinical Notes Section Notes 01/27/2024 Right renal mass (ICD-10 - N28.89) went over the results of her consult at [facility] [place] Total time spent on the date of the encounter is 35 minutes including both face to face time spent and time spent reviewing documentation, pertinent lab data, studies and counseling the patient. Plan Of Treatment Treatment Notes Assessment Notes Right renal mass went over the result s of her consult at [facility] Total time spent on the date of the encounter is 35 minutes including both face to face time spent and time spent reviewing documentation, pertinent lab data, studies and counseling the patient. Next Appt Details Provider Name:Timoteo whitehead, 11/10/2024 07:30:00 AM, [address] [place] [address], [address] [place] [address], [id number], Provider Name:Timoteo whitehead, 11/17/2024 09:30:00 AM, [address] [place] [address], [address], [phone], Progress Notes * Luis HAINES MDOB:1954 (68 yo F)Acc No.[id number]:01/27/2024 Progress Notes Patient:?Luis Haines Provider:?Timoteo Hernandez MD :1955???Age:68 Y???Sex:Female D ate:01/27/2024 [address] [facility] [place] [place] Subjective: * Chief Complaints: * ???2 month go over her trip to [place] * HPI: ???Symptom(s):? patient is a 68 yo female here for 2 month follow up visit, here for follow up of [place] trip. * ROS:?General/Constitutional:?Denies?Chills.?Denies?Fatigue.?Denies?Fever.?Denies?Headache.?ENT:?Patient denies?decreased sense of smell , any loss of taste , sore throat.?Denies?Sore throat.?Respiratory:?Denies?Cough.?Denies?Shortness of breath at rest.?Denies?Shortness of breath with exertion.?Gastrointestinal:?Denies?Diarrhea.?Denies?Nausea.?Musculoskeletal:?Patient denies?muscle aches.?Peripheral Vascular:?Patient denies?red and blue toes.? * Medical History:? * Surgical History:? * Hospitalization/Major Diagno stic Procedure:? * Medications:?TakingClobetaso l Propionate 0.05 % Cream 1 application Externally Twice a dayColace 100 MG Capsule 1 capsule Orally Once a dayAdvil 200 MG Capsule 3 tabs Orally every 6 hrsVitamin D3 2000 UNIT Tablet 1 tablet Orally Once a dayTaking Clobetasol Propionate 0.05 % Cream 1 application Externally Twice a dayTaking Colace 100 MG Capsule 1 capsule Orally Once a dayTaking Advil 200 MG Capsule 3 tabs Orally every 6 hrsTaking Vitamin D3 2000 UNIT Tablet 1 tablet Orally Once a dayNot-Taking/PRNMeclizine HCl 12.5 MG Tablet 1 tablet as needed Orally Once a dayAntivert 12.5 MG Tablet TAKE 1 TABLET BY MOUTH 3 TIMES A DAY Medication List reviewed and reconciled with the patientNot-Taking/PRN Meclizine HCl 12.5 MG Tablet 1 tablet as needed Orally Once a dayNot-Taking/PRN Antivert 12.5 MG Tablet TAKE 1 TABLET BY MOUTH 3 TIMES A DAY Medication List reviewed and reconciled with the patient * Allergies:?Demerol: dizzy na useauyes[Allergies Verified] Objective: * Vitals:?Ht: 63, Wt:142, BMI: 25.15, BP:112/60. * Examination: ???General Examination: ?GENERAL APPEARANCE:? alert, well hydrated, in no distress .?HEAD:? normocephalic.?SKIN:? good turgor.?HEART:? regular rate and rhythm, no murmurs, rubs, gallops.?LUNGS:? no wheezes, rales, rhonchi, good air movement, clear to auscultation bilaterally.? Assessment: * Assessment: 1.?Right renal mass - N28.89 (Primary)? Plan: * Treatment: * Procedure Codes:? * * Sign off status: Completed true * Provider:?Timoteo Hernandez MD Date:?0 01/27/2024 Generated for Orly ruiz/Leora/eTkalyanismitting on:?09/21/2024 12:19 PM EST History and Physical Notes * HPI (History of Present Illness) Category Sub-Category Detail Notes Category Not es Symptom(s) patient is a 68 yo female here for 2 month follow up visit, here for follow up of [place] trip Examination Category Sub-Category Detail Notes Category Not es General Examination GENERAL APPEARANCE: alert, w ell hydrated, in no distress HEAD: normocephalic HEART: regular rate and rhy thm, no murmurs, rubs, gallops LUNGS: no wheezes, rales, r honchi, good air movement, clear to auscultation bilaterally SKIN: good turgor
--- OUTSIDE RECORDS SUMMARY | 2024-09-21 12:19 | XMS_ITS ---
Author Organization Timoteo Hernandez MD Address [address] [place] [phone] Care Team Providers Care Transonic Engineer Name Role Phone Timoteo Hernandez Primary Care Provider [phone] REASON FOR VISIT HDF Immunizations Vaccine Route Administration Date Status Comme nts Influenza High Dose IM Intramuscular 05/05/2024 Administer ed Encounters Encounter Location Date Provider Diagnosis Timoteo Hernandez MD [address] [place] [phone] 05/05/2024 Timoteo Hernandez Encounter for immunization Z23 Assessments Encounter Date Diagnosis (ICD Code) Assessment Notes Treatment Notes Treatment Clinical Notes Section Notes 05/05/2024 Encounter for immunization (ICD-10 - Z23) Plan Of Treatment Next Appt Details Provider Name:Timoteo whitehead, 11/10/2024 07:30:00 AM, [address], [address], [place], [phone], Provider Name:Timoteo Cheung Lisha ier, 11/17/2024 09:30:00 AM, [address], [address], [place], [phone], Progress Notes * Luis HAINES MDOB:1954 (68 yo F)Acc No.[id number]:05/05/2024 Progress Note Patient:?Luis Haines Provider:?Timoteo Hernandez MD :1955???Age:68 Y???Sex:Female D ate:05/05/2024 Address:[address] [place], [place] [phone] Subjective: * Chief Complaints: * ???HDF * Medical History:? * Surgical History:? * Hospitalization/Major Diagno stic Procedure:? * Medications:? Objective: Assessment: * Assessment: 1.?Encounter for immunizatio n - Z23 (Primary)? Plan: * Treatment: * Immunizations:? Influenza High Dose : 0.5 mL (Dose No:1) (Route: Intramuscular) given by Kimberly Arnett on Left Deltoid * Procedure Codes:?28293 FLU V ACC PRSV FREE INC [id number] ADMN FLU VAC NO FEE SCHED SAME DAY * * Sign off status: Completed true * Provider:?Timoteo Hernandez MD Date:?1 Generated for Orly ruiz/Leora/eTransmitting on:?09/21/2024 12:19 PM EST
--- OUTSIDE RECORDS SUMMARY | 2024-09-21 12:19 | XMS_ITS | Patient Health Record ---
Author Organization [facility] Address [address] [place] [address] Care Team Providers Care Civil Design Specialist Name Role Phone David PEDERSEN, Timoteo Primary Care Provider Sameer Ahuja [phone] Allergies Allergen (clinical drug ingredient) Drug/Non Drug Allergy documented on EMR Reaction Allergy Type Onset Date Status meperidine Demerol IV (uncoded) Unknown Allergy Active Reason For Referral No Information Medications Medication SIG (Take, Route, Frequency, Duration) Notes Start Date End Date Status Colace 100 MG Orally Once a day Active Vitamin D3 50 MCG (1999) Orally Active Meclizine HCl PRN Active Advil 200 MG 1 tablet with food o r milk as needed Orally NEEDED PRN Activ e Immunizations Vaccine Route Administration Date Status Comme nts Influenza Unknown 05/01/2020 Administered Influenza Unknown 04/18/2021 Administered Influenza Unknown 05/05/2022 Administered Problems Problem Type SNOMED Code ICD Code Onset Dates Problem Status W/U Status Risk Notes Problem 007506853 Encounter for screening for malignant neoplasm of colon (Z12.11) Active confirmed Problem Dysphagia (28837527) Dysphagia (R13.10) Active confirmed Problem 38722463 Constipation, unspecified constipation type (K59.00) Active confirmed Problem Esophageal motility disorder (81989534) Esophageal motility disorder (K22.4) Active confirmed Problem 62847203 Constipation by delayed colonic transit (K59.01) Active confirmed Problem Diverticular disease of colon (169895926) Diverticular disease of colon (K57.30) Active confirmed Problem 41775148 Esophageal dysphagia (R13.10) Active confirmed Plan Of Treatment Pending Test Test Name Order Date Esophageal Motility study 07/08/2021 Esophageal Motility study 11/04/2021 XR BARIUM SWALLOW-ESOPHAGUS 07/08/2021 COVID-19 ID NOW (Rodas) 07/08/2021 Future Test Test Name Order Date UPPER GI ENDOSCOPY BALLOOON DILATION OF ESOPH 04/22/2011 COLONOSCOPY 04/22/2011 UPPER GI ENDOSCOPY BALLOOON DILATION OF ESOPH 11/27/2020 COLONOSCOPY 11/27/2020 Insurance Providers Payer Name Payer Address Payer Phone Subscriber Number Group Number Insured Name Patient Relationship to Insured Coverage Start Date Coverage End Date MEDICARE OF [place] [address] [place] [address] [id number] KAYLYN ARCHULETA Self - patient is the insured [facility]LY [facility] IN[employer]MNITY [address] [place] [address] [id number] KAYLYN ARCHULETA Self - patient is the insured Medical (General) History Medical History History ICD Code Occasional vertigo Denies [place],DM,CVA,Lung disease,renal dise ase Osteoarthritis Interstitial cystitis Osteopenia Vitamin D Deficiency Negative colonoscopy in 2005 and 05/2011 Negative EGD in 2005 and in 05/2011 exce pt for a minimal hiatal hernia Plantar fasciitis 02/2021 EGD--small hiatal her sumanth--no esophagitis nor Patton's esophagus; biopsies were negative for eosinophilic esophagitis; I did use a 18-20mm balloon to dilate the gastroesophageal junction but without any obvious effect 02/2021 colonoscopy revealed small tubula r adenomas that were removed Plantar fasciitis/ bone spurs Dysphagia--EGD as above--mot ility studies in December of 2021 revealed some ineffective esophageal motility and some indeterminate abnormality of lower esophageal sphincter relaxation. However, the findings were not significant enough to diagnose achalasia. Surgical History Surgery Date(Month/Year) Hysterectomy
--- OUTSIDE RECORDS SUMMARY | 2024-09-21 12:19 | XMS_ITS | Patient Health Record ---
Author Organization Timoteo Hernandez MD Address [address] [place] [phone] Care Team Providers Care Employee Wellness/Fitness Coordinator Name Role Phone Timoteo Hernandez Primary Care Provider [phone] Allergies Allergen (clinical drug ingredient) Drug/Non Drug Allergy documented on EMR Reaction Allergy Type Onset Date Status meperidine Demerol dizzy nauseau Drug Allergy Ac tive Results Component Value Reference Range Notes Complete Blood Count Auto Di ff Reviewed date:11/08/2023 12:53:42 PM Interpretation: Performing Lab:[facility], [address] [place] [phone] Notes/Report: White Blood Count 3.8 4.8-10.8 X10*3/uL Red Blood Count 4.56 4.20-5.50 X10*6/uL Hemoglobin 13.6 12.0-16.0 g/dl Hematocrit 42.6 37.0-47.0 % Mean Corpuscular Volume 93.4 80.0-98.0 fL Mean Corpuscular Hemoglobin 29.8 27.0-33.0 pg Mean Corpuscular HGB Conc 31.9 31.0-35.0 g/dl Red Cell Distribution Width 13.1 11.0-16.0 % Platelet Count 232 160-400 X10*3/uL Mean Platelet Volume 10.4 9.4-12.3 fL Neutrophils Percent Auto 44.8 45-73 % Imm Gran Pct Auto 0.3 0.0-0.4 % Lymphocytes Percent Auto 44.1 20-40 % Monocytes Percent Auto 6.8 2-11 % Eosinophils Percent Auto 3.7 0-4 % Basophils Percent Auto 0.3 0-2 % NRBC Pct Auto 0.0 0.0-0.2 /100WBC Neutrophils Absolute Auto 1.7 2.0-8.3 x10*3/uL Imm Gran Abs Auto 0.01 0.00-0.03 X10*3/uL Lymphocytes Absolute Auto 1.7 1.2-4.9 X10*3/uL Monocytes Absolute Auto 0.3 0.1-1.2 X10*3/uL Eosinophils Absolute Auto 0.1 0.0-0.4 X10*3/uL Basophils Absolute Auto 0.0 0.0-0.2 X10*3/uL NRBC Abs Auto 0.000 0.0-0.012 X10*3/uL Comprehensive [place]. Panel Fa st Reviewed date:11/08/2023 12:53:05 PM Interpretation: Performing Lab:[facility], [address] [place] [phone] Notes/Report: Sodium 142 135-145 mmol/L Potassium 3.8 3.3-5.1 mmol/L Chloride 108 96-108 mmol/L Carbon Dioxide 29 22-29 mmol/L Anion Gap 9 12-20 Blood Urea Nitrogen 12 9-16 mg/dL Creatinine 0.53 0.5-1.4 mg/dL Estimated Glomerular Filt Rate > 60 NOTE: For -Mauritian individuals, multiply the result by 1.210. Chronic Kidney Disease: Estimated GFR < 60 mL/min/1.73m2 Severe Kidney Disease: Estimated GFR < 15 mL/min/1.73m2 Glucose Fasting 79 60-99 mg/dL Calcium 9.3 8.4-10.2 mg/dL Bilirubin Total 0.5 0.0-1.0 mg/dL Aspartate Amino Transferase 15 5-31 U/L Alanine Aminotransferase 8 0-31 U/L Total Protein 6.8 6.5-8.0 g/dL Albumin Level 4.1 3.5-5.0 g/dL Alkaline Phosphatase 64 39-117 U/L Lipid Panel Reviewed date:11/08/2023 12:38:00 PM Interpretation: Performing Lab:[facility], [address] [place] [phone] Notes/Report: Triglycerides 77 <150 mg/dL Desirable Triglyceride: less than 150 mg/dL Borderline High Triglyceride 150-199 mg/dL High Triglyceride: 200-499 mg/dL Very High Triglyceride: greater than or equal to 5OO mg/dL Cholesterol 239 <200 mg/dL Desirable Cholesterol: less than 200 mg/dL Borderline High Cholesterol: 200-239 mg/dL High Cholesterol: greater than 239 mg/dL LDL Cholesterol Calculated 148 <100 mg/dL Desirable LDL: less than 100 mg/dL Near Optimal/Above Optimal LDL: 110-129 mg/dL Borderline High LDL: 130-159 mg/dL High LDL: 160-189 mg/dL Very High LDL: greater than or equal to 190 mg/dL HDL Cholesterol 76 >40 mg/dL Desirable HDL: greater than 40 mg/dL Note: This HDL assay may give artificially low results in patients with liver disease. Vitamin D 25-OH Total Reviewed date:11/08/2023 12:48:30 PM Interpretation: Performing Lab:[facility], [address] [place] [phone] Notes/Report: Vitamin D 25-OH Total 67.4 >30 ng/mL Health Based Reference Values* < 20 ng/mL Deficient 20-30 ng/mL Insufficient > 30 ng/mL Sufficient *Balbir BENJAMIN. N Engl J Med. 2007;357:266-280 Care must be taken in interpreting Vitamin D results from different laboratories and methodologies. Published data demonstrated that results from patients undergoing hemodialysis may show a negative bias when tested with various automated 25-OH vitamin D assays when compared to LC-MS/MS. When testing samples from patients whose predominant form of Vitamin D is Vitamin D2, such as patients receiving Vitamin D2 supplementation, results that are subtherapeutic should be confirmed with another method such as LC-MS/MS. UA ClnCatch+Micro w/rflx Cul t Reviewed date:11/09/2023 05:58:14 PM Interpretation: Performing Lab:[facility], [address] [place] [phone] Notes/Report: Urine, Clean Catch Color Urine Yellow Appearance Urine Clear PH 6.0 5.0-9.0 Glucose Urine UA Negative Negative mg/dL Urine Blood Negative Negative Specific [place] - Urine 1.020 1.005-1.025 Urine Protein Negative Neg-Trace mg/dL Urine Ketones Negative Negative mg/dL Nitrite Urine Negative Negative Leukocyte Esterase Urine Negative Negative RBC Urine 0-2 0-2 /HPF WBC Urine 0-5 0-5 /HPF Squamous Epithelial Cell Urine 0-2 0-2 /HPF Bacteria Urine None Seen None Seen Hyaline Casts Urine 0-2 0-2 /LPF Occult Blood, Stool, Guaiac Reviewed date:11/15/2023 11:21:21 AM Interpretation:Negative Performing Lab: Notes/Report: Negative Occult Blood, Stool, Guaiac Neg MR abdomen wo/w con Reviewed date:10/19/2023 12:32:01 PM Interpretation: Performing Lab: Notes/Report: [address] [address] Magnetic Resonance Report Signed Patient: Luis Haines MR#: [id number] : 1955 Acct:[id number] Age/Sex: 68 / F ADM Date: 10/13/23 Loc: HO.MRI Attending Dr: Timoteo Hernandez MD Ordering Physician: Timoteo Hernandez MD Date of Service: 10/13/23 Procedure(s): MR abdomen wo/w con Accession Number(s): [id number] cc: Timoteo Hernandez MD EXAMINATION: MR ABDOMEN WITHOUT AND WITH CONTRAST CLINICAL INFORMATION: Renal lesion COMPARISON: MRI abdomen 11/01/2007, MRI lumbar spine 09/12/2023 TECHNIQUE: MRI of the abdomen before and after the IV administration of 6.5 mL of Gadavist was obtained using routine sequences. FINDINGS: LUNG BASES: The visualized lung bases are unremarkable. KIDNEYS AND URETERS: Bosniak 1 bilateral renal cysts, no follow-up imaging recommended. A 1.1 cm T2 bright right lower pole renal lesion corresponding to an area of concern on prior MR lumbar spine saturates out on fat suppressed sequences compatible with an angiomyolipoma. A 1.1 cm right lower pole renal lesion which demonstrates some heterogeneous T2 bright signal and rim enhancement and an enhancing thickened internal septation measuring 4 mm although the differential consideration would include an enhancing nodule. GALLBLADDER: Cholelithiasis without evidence of acute cholecystitis. LIVER AND BILIARY TREE: Numerous T2 bright hepatic cysts and T2 bright liver lesions with discontinuous peripheral nodular enhancement and gradual filling compatible with hemangiomas. A 0.8 cm arterial hyperenhancing liver lesion in the periphery of the right hepatic lobe, 100:69 and is isointense on the remainder of phases favoring a transient hepatic intensity difference, favored to be subtly present on prior, (7:71 on prior) not significantly changed previously 7 mm. No intra or extrahepatic biliary duct dilatation. PANCREAS: Unremarkable SPLEEN: Unremarkable ADRENAL GLANDS: Unremarkable GASTROINTESTINAL TRACT: Small hiatal hernia. LYMPH NODES: No lymphadenopathy. VASCULAR: Unremarkable ABDOMINAL WALL: Small fat-containing umbilical hernia. OSSEOUS STRUCTURES: Incidentally noted sacral Tarlov cyst. T2 bright lesion in the T12 vertebral body which again may reflect a hemangioma. MR/MR abdomen wo/w con IMPRESSION: 1. A 1.1 cm right lower pole renal lesion which demonstrates rim enhancement and an enhancing thickened internal septation measuring 4 mm although the differential consideration would include an enhancing nodule, and therefore may reflect a Bosniak 3 cystic renal mass, intermediate probability of malignancy, versus bosniak 4 cystic renal mass, probable for malignancy, and recommend urologic evaluation and management. 2. A 0.8 cm arterial hyperenhancing liver lesion in the periphery of the right hepatic lobe is favored to reflect a transient hepatic intensity difference, and favored to be similar to prior. 3. Cholelithiasis without evidence of acute cholecystitis. The findings and recommendations were discussed with Dr. Timoteo eHrnandez by telephone at 10/18/2023 1:20 PM and it was ascertained that the content and urgency of the report was understood at the time of direct communication. Dictated By: Flor Ball MD Signed By: <Electronically signed by Flor Ball MD in OV> 10/18/23 1321 DD/ 1146 TD/TT: Immigration Guard: [place] [address] Magnetic Resonance Report Signed Patient: Nakul Haines MR#: [id number] : 1955 Acct:[id number] Age/Sex: 68 / F ADM Date: 10/13/23 Loc: HO.MRI Attending Dr: Timoteo Hernandez MD Ordering Physician: Timoteo Hernandez MD Date of Service: 10/13/23 Procedure(s): MR abd omen wo/w con Accession Number(s): [id number] cc: Timoteo Hernandez MD EXAMINATION: MR ABDOMEN WITHOUT A ND WITH CONTRAST CLINICAL INFORMATION: Renal lesion COMPARISON: MRI abdomen 11/01/19, MRI lumbar spine 09/12/2023 TECHNIQUE: MRI of the abdomen before and after the IV administration of 6.5 mL of Gadavist was obtaine d using routine sequences. FINDINGS: LUNG BASES: The visualized lung bases are unremarkable. KIDNEYS AND URETERS: Bosniak 1 bilateral renal cysts, no follow-up imaging recommended. A 1.1 cm T2 bright right lower pole renal lesion corresponding to an area of concern on prior MR lumbar spine saturates out on fat suppresse d sequences compatible with an angiomyolipoma. A 1.1 cm right lower p ole renal lesion which demonstrates some heterogeneous T2 liz ght signal and rim enhancement and an enhancing thickened internal septation measuring 4 mm although the differential consideration would include an enhancing nodule. GALLBLADDER: Cholelithiasis without evidence of acute cholecystitis. LIVER AND BILIARY TR EE: Numerous T2 bright hepatic cysts and T2 bright liver lesions with discontinuous peripheral nodular enhancement and gradual filling compatible with hemangiomas. A 0.8 cm arterial hyperenhancing liver lesion in the periphery of the right hepatic lobe, 100:69 and is isoint ense on the remainder of phases favoring a transient hepatic intensity difference, favored to be subtly present on prior, (7:71 on prio r) not significantly changed previously 7 mm. No intra or extrahepati c biliary duct dilatation. PANCREAS: Unremarkable SPLEEN: Unremarkable ADRENAL GLANDS: Unremarkable GASTROINTESTINAL TRA CT: Small hiatal hernia. LYMPH NODES: No lymphadenopathy. VASCULAR: Unremarkable ABDOMINAL WALL: Smal l fat-containing umbilical hernia. OSSEOUS STRUCTURES: Incidentally noted sacral Tarlov cyst. T2 bright lesion in the T12 vertebral body which again may reflect a hemangioma. M R/MR abdomen wo/w con IMPRESSION: 1. A 1.1 cm right lo wer pole renal lesion which demonstrates rim enhancement and an enhancing thickened internal septation measuring 4 mm although the differential consideration would include an enhancing nodule, and therefor e may reflect a Bosniak 3 cystic renal mass, intermediate probabi lity of malignancy, versus bosniak 4 cystic renal mass, probable for malignancy, and recommend urologic evaluation and management. 2. A 0.8 cm arterial hyperenhancing liver lesion in the periphery of the right hepatic lo be is favored to reflect a transient hepatic intensity difference , and favored to be similar to prior. 3. Cholelithiasis without evidence of acute cholecystitis. The findings and recommendations were discussed with Dr. Timoteo Hernandez by teleph one at 10/18/2023 1:20 PM and it was ascertained that the content and urge ncy of the report was understood at the time of direct communication. Dictated By: Flor Ball MD Signed By: <Electronically signed by Flor Ball MD in OV> 10/18/23 1321 DD/ 1146 TD/TT: Immigration Guard: Minda Bautista Reviewed date:11/08/2023 12:37:52 PM Interpretation: Performing Lab:[facility], [address] [place] [phone] Notes/Report: Minda Bautista See Note Specimen held untested for 24 hours; Call to request Chemistry testing. Reason For Referral No Information Medications Medication SIG (Take, Route, Frequency, Duration) Notes Start Date End Date Status Vitamin D3 2000 UNIT 1 tablet Orally Onc e a day 10/08/2017 Active Advil 200 MG 3 tabs Orally every 6 hrs Active Colace 100 MG 1 capsule Orally Onc e a day Active Clobetasol Propionate 0.05 % 1 application Externally Twice a day for 10 day(s) Active Antivert 12.5 MG TAKE 1 TABLET BY PRISCILLA TH 3 TIMES A DAY for 13 Not-Taking Meclizine HCl 12.5 MG 1 tablet as needed Orally Once a day for 90 days Not-Taking Immunizations Vaccine Route Administration Date Status Comme nts Flu Vaccine Unknown 04/30/2014 Administered [place] [facility] TDaP IM Intramuscular 08/13/2014 Administered Shingles IM Intramuscular 08/21/2014 Administered Flu Vaccine IM Intramuscular 05/09/2015 Administered [facility] Fluarix Quadrivalent Unknown 04/28/2016 Administered [facility] PPSV23 (Pnemovax) IM Intramuscular 09/17/2016 Administered Prevnar 13 IM Intramuscular 10/08/2017 Administered Fluarix Quadrivalent Unknown 05/03/2018 Administered pt was given the vaccine at [facility] Fluarix Quadrivalent IM Intramuscular 05/12/2019 Administered pt was given th e vaccine at [facility] in [place]. Fluarix Quadrivalent Unknown 04/18/2020 Administered [facility] Influenza High Dose IM Intramuscular 05/06/2021 Administer ed SARS-COV-2 Pfizer Unknown 07/17/2021 Administered SARS-COV-2 Pfizer Unknown 09/20/2020 Administered SARS-COV-2 Pfizer Unknown 10/11/2020 Administered Influenza High Dose IM Intramuscular 05/12/2022 Administer ed Influenza High Dose IM Intramuscular 05/27/2023 Administer ed Influenza High Dose IM Intramuscular 05/05/2024 Administer ed Tetanus Unknown 08/13/2014 Pending Social History Tobacco Use: Social History Observation Description Date Details (start date - stop date) Former Smoker NA - NA Tobacco Use/Smoking Question Answer Notes Patient is a former smoker How long has it been since y ou last smoked? > 10 years Additional Findings: Tobacco Non-User Fo rmer smoker, currently using no form of tobacco Alcohol Screen Question Answer Notes Did you have a drink contain ing alcohol in the past year? Yes How often did you have a dri nk containing alcohol in the past year? 2 to 4 times a month (2 points) How many drinks did you have on a typical day when you were drinking in the past year? 1 or 2 drinks (0 point) How often did you have 6 or more drinks on one occasion in the past year? Never (0 point) Points 2 Interpretation Negative Problems Problem Type SNOMED Code ICD Code Onset Dates Problem Status W/U Status Risk Notes Problem 78063109 Lymphocytosis (D72.820) Active confirmed Problem 18632219 Vitamin D deficiency (E55.9) Active confirmed Problem 569501269 Gastroesophageal reflux disease without esophagitis (K21.9) Active confirmed Problem Osteoporosis (70550294) Osteoporosis (M81.0) Active confirmed Problem 175982915 Osteopenia determined by x-ray (M85.80) Active confirmed Problem 77307922 Esophageal dysphagia (R13.10) Active confirmed Problem 5404991766897152 Arthritis of le ft hip (M16.12) Active confirmed Problem 598109384 Right renal mass (N28.89) Active confirmed Vital Signs Blood pressure diastolic 60 mm Hg 01/27/2024 Height 63 in 01/27/2024 Blood pressure systolic 112 mm Hg 01/27/2024 Weight 142 lbs 01/27/2024 BMI 25.15 kg/m2 01/27/2024 Encounters Encounter Location Date Provider Diagnosis Tmioteo Hernandez MD [address] [place] [id number] 11/08/2023 Timoteo Hernandez Lymphocytosis D72.82 0 and Vitamin D deficiency E55.9 Timoteo Hernandez MD [address] [place] [address] [id number] 10/19/2023 Timoteo Hernandez Abnormal MRI, kidney R93.429 Timoteo Hernandez MD [address] [place] [address] Drive [address] [place] [id number] 11/15/2023 Timoteo Hernandez Hepatic hemangioma D18.03 ; Lymphocytosis D72.820 ; Vitamin D deficiency E55.9 ; Colon cancer screening Z12.11 and Depression screening Z13.31 Timoteo Hernandez MD [address] [place] [id number] 01/27/2024 Timoteo Hernandez Right renal mass N28.89 Timoteo Hernandez MD [address] [place] [address] Drive [address] [place] [id number] 05/05/2024 Timoteo Hernandez Encounter for immunization Z23 Assessments Encounter Date Diagnosis (ICD Code) Assessment Notes Treatment Notes Treatment Clinical Notes Section Notes 11/08/2023 Lymphocytosis (ICD-10 - D72.820) 11/08/2023 Vitamin D deficiency (ICD-10 - E55.9) 10/19/2023 Abnormal MRI, kidney (ICD-10 - R93.429) discussed alternative of areas of treatment. she is going to decide and let me know when she comes in 11/15/2023 Hepatic hemangioma (ICD-10 - D18.03) need to speak to dr ball radiology about liver lesion/ will call [facility]/ spoke with radiologist about the .8 cm liver lesion and he said same as mri fro 14 years ago and to ignore it 11/15/2023 Lymphocytosis (ICD-10 - D72.820) 01/27/2024 Right renal mass (ICD-10 - N28.89) went [place] the [place] [facility] Total time spent on the date of the encounter is 35 minutes including both face to face time spent and time spent reviewing documentation, pertinent lab data, studies and counseling the patient. 05/05/2024 Encounter for immunization (ICD-10 - Z23) 11/15/2023 Vitamin D deficiency (ICD-10 - E55.9) stable, will continue current regiment 11/15/2023 Colon cancer screening (ICD-10 - Z12.11) guaiac negative 11/15/2023 Depression screening (ICD-10 - Z13.31) negative screen Plan Of Treatment Pending Test Test Name Order Date Electrocardiogram (EKG) 10/08/2017 Electrocardiogram (EKG) 10/20/2018 XR CHEST 2 VIEW PA & LAT 05/22/2022 XR DEXA axial skeleton 11/28/2021 XR DEXA axial skeleton 11/07/2021 MR abdomen wo/w con 09/16/2023 Next Appt Details Provider Name:Timoteo whitehead, 11/10/2024 07:30:00 AM, [address] [place] [address], [place] [address], [place], [place], [phone], Provider Name:Timoteo whitehead, 11/17/2024 09:30:00 AM, [address] [place] [address], [address], [place], [place], [phone], Insurance Providers Payer Name Payer Address Payer Phone Subscriber Number Group Number Insured Name Patient Relationship to Insured Coverage Start Date Coverage End Date [employer] [address] [place] [address] [id number] Luis Haines Self - patient is the insured [facility] [address] [place] [address] [id number] Luis Haines Self - patient is the insured Medical (General) History Medical History History ICD Code dojgojddnaq17/08/2011 father with colon cancer/repeat [address] Orozco sees inhalation therapy aide yearly. discussed the need for shing le vaccination and she is to check with insurance 2020 colonoscopy 2020, 5yr repeat Surgical History Surgery Date(Month/Year) hysterectomy 1997
--- OUTSIDE RECORDS SUMMARY | 2024-09-21 12:19 | XMS_ITS | Patient Health Record ---
Author Organization [facility] [place] Address [address] [facility] [place] [phone] Care Team Providers Care Digital Media Designer Name Role Phone Timoteo Hernandez MD Primary Care Provider Obinna Juarez Unavailable [phone] Allergies Allergen (clinical drug ingredient) Drug/Non Drug Allergy documented on EMR Reaction Allergy Type Onset Date Status meperidine Demerol severe nausea Drug Allergy Ac tive Reason For Referral No Information Medications Medication SIG (Take, Route, Frequency, Duration) Notes Start Date End Date Status Desoximetasone 0.25 % External for 7 Not-Taking Clobetasol Propionate 0.05 % External for 30 Not-Taking CeleBREX 200 MG 1 capsule with food Orally Once a day for 30 day(s) 02/24/2021 Not-Taking Night Splint AFO - L1930 as directed 02/24/2021 Active Vitamin D 2000 UNIT Orally Once a day Active Physical Therapy . . . 2-3x/week for 3- 4 weeks 02/24/2021 Not-Taking Physical Therapy . . . 2-3x/week for 3- 4 weeks 04/07/2021 Not-Taking Colace 100 MG 1 capsule as needed Orally Once a day Active Advil PRN Active Tacrolimus 0.03 % External for 28 Not-Taking NIFEdipine CR Osmotic PRN Active Meclizine HCl 12.5 MG 2 tablets as neede d Orally Once a day PRN Active Immunizations Vaccine Route Administration Date Status Comme nts COVID-19 Pfizer BioNTech Vaccine Unknown 07/23/2021 Administered 1st 09/20/2020 2nd 10/11/2020 Social History Tobacco Use: Social History Observation Description Date Details (start date - stop date) Never Smoker NA - NA Tobacco Use/Smoking Question Answer Notes Are you a: nonsmoker Additional Findings: Tobacco Non-User Current no n-smoker Alcohol Screen Question Answer Notes Did you have a drink containing alcohol in the p ast year? Yes Points 0 Interpretation Negative Tobacco use other than smoking: Question Answer Notes Are you an other tobacco user? No Problems Problem Type SNOMED Code ICD Code Onset Dates Problem Status W/U Status Risk Notes Problem Acquired hallux valgus (42929478) Hallux valgus (acquired), left foot (M20.12) Active confirmed Problem Acquired hallux valgus (11728120) Hallux valgus (acquired), right foot (M20.11) Active confirmed Plan Of Treatment Pending Test Test Name Order Date X ray : Foot, left 2V 01/07/2016 X ray : Foot, right 2V 01/07/2016 X ray : Foot, left 3V 02/24/2021 X ray : Foot, right 3V 02/24/2021 34107-Zmza Destruction, 08-0101/07/2016 74794-Vunl Destruction, 08-0102/03/2016 31739-Vato Destruction, 08-0103/09/2016 24800-Btlk Destruction, 08-0107/26/2017 44412-Ojwt Destruction, 08-0109/16/2017 06993-Hbik Destruction, 08-0101/06/2018 19192-Wovo Destruction, 08-0104/07/2018 02888-Xfiq Destruction, 08-0106/30/2018 Insurance Providers Payer Name Payer Address Payer Phone Subscriber Number Group Number Insured Name Patient Relationship to Insured Coverage Start Date Coverage End Date Medicare [employer] [address] [place] [address] [id number] Luis Haines Self - patient is the insured [facility] [address] [place] [id number] [phone] [id number] Luis Haines Self - patient is the insured Medical (General) History Medical History History ICD Code osteoarthritis Knee Pain Reflux Measles Mumps Chicken pox Skin disorder Interstitial cystitis Surgical History Surgery Date(Month/Year) hysterectomy 1997 colonoscopy, endoscopy 03/2021
--- OUTSIDE RECORDS SUMMARY | 2024-09-21 12:19 | XMS_ITS ---
Author Organization Timoteo Hernandez MD Address [address] [place] [id number] Care Team Providers Care Caretaker Resort Name Role Phone Timoteo Hernandez Primary Care Provider [phone] Allergies Allergen (clinical drug ingredient) Drug/Non Drug Allergy documented on EMR Reaction Allergy Type Onset Date Status meperidine Demerol dizzy nauseau Drug Allergy Ac tive Results Component Value Reference Range Notes Occult Blood, Stool, Guaiac Reviewed date:11/15/2023 11:21:21 AM Interpretation:Negative Performing Lab: Notes/Report: Negative Occult Blood, Stool, Guaiac Neg REASON FOR VISIT review labs, No Covid symptoms Medications Medication SIG (Take, Route, Frequency, Duration) Notes Start Date End Date Status Clobetasol Propionate 0.05 % 1 application Externally Twice a day for 10 day(s) Active Antivert 12.5 MG TAKE 1 TABLET BY PRISCILLA TH 3 TIMES A DAY for 13 Not-Taking Advil 200 MG 3 tabs Orally every 6 hrs Active Colace 100 MG 1 capsule Orally Onc e a day Active Vitamin D3 2000 UNIT 1 tablet Orally Onc e a day 10/08/2017 Active Meclizine HCl 12.5 MG 1 tablet as needed Orally Once a day for 90 days Not-Taking Social History Tobacco Use: Social History Observation [...] Never (0 point) Points 2 Interpretation Negative Vital Signs Blood pressure systolic 122 mm Hg 11/15/19 24 Blood pressure diastolic 68 mm Hg 024 Height 63 in 11/15/2023 Weight 144 lbs 11/15/2023 BMI 25.51 kg/m2 11/15/2023 Encounters Encounter Location Date Provider Diagnosis Timoteo Hernandez MD [address] [place] [address] [place] [id number] 11/15/2023 Timoteo Hernandez Hepatic hemangioma D18.03 ; Lymphocytosis D72.820 ; Vitamin D deficiency E55.9 ; Colon cancer screening Z12.11 and Depression screening Z13.31 Assessments Encounter Date Diagnosis (ICD Code) Assessment Notes Treatment Notes Treatment Clinical Notes Section Notes 11/15/2023 Hepatic hemangioma (ICD-10 - D18.03) need to speak to dr ball radiology about liver lesion/ will call [facility] radiology/ spoke with radiologist about the .8 cm liver lesion and he said same as mri fro 14 years ago and to ignore it 11/15/2023 Lymphocytosis (ICD-10 - D72.820) 11/15/2023 Vitamin D deficiency (ICD-10 - E55.9) stable, will continue current regiment 11/15/2023 Colon cancer screening (ICD-10 - Z12.11) guaiac negative 11/15/2023 Depression screening (ICD-10 - Z13.31) negative screen Plan Of Treatment Treatment Notes Assessment Notes Hepatic hemangioma need to speak to dr ball radiology about liver lesion/ will call [facility] radiology/ spoke with radiologist about the .8 cm liver lesion and he said same as mri fro 14 years ago and to ignore it Vitamin D deficiency stable, will contin ue current regiment Colon cancer screening guaiac negative Depression screening negative screen Next Appt Details Follow Up: 2 months to go ov er her trip to [place], Reason: Provider Name:Timoteo whitehead, 11/10/2024 07:30:00 AM, [address] [place] [address], [address], [place], [place], [phone], Provider Name:Timoteo whitehead, 11/17/2024 09:30:00 AM, [address] [place] [address], [address], [place], [place], [phone], Progress Notes * Luis HAINES MDOB:1954 (68 yo F)Acc No.[id number]:11/15/2023 Patient:?Luis Haines Provider:?Timoteo Hernandez MD :1955???Age:68 Y???Sex:Female D ate:11/15/2023 Address:[address] [place], [place] [id number] Subjective: * Chief Complaints: * ???Review labsNo Covid sympt oms * HPI: ???Depression Screening:?PHQ-9?Little interest or pleasure in doing things?Not at all,?Feeling down, depressed, or hopeless?Not at all,?Trouble falling or staying asleep, or sleeping too much?Not at all,?Feeling tired or having little energy?Not at all,?Poor appetite or overeating?Not at all,?Feeling bad about yourself or that you are a failure, or have let yourself or your family down?Not at all,?Trouble concentrating on things, such as reading the newspaper or watching television?Not at all,?Moving or speaking so slowly that other people could have noticed; or the opposite, being so fidgety or restless that you have been moving around a lot more than usual?Not at all,?Thoughts that you would be better off or of hurting yourself in some way?Not at all,?Total Score?0.? patient is a 68 yo female here for review of recent labs and follow up of chronic issues. ???Communication Needs:?Communication Needs?Does the patient have a hearing impairment?No,?Does the patient have a vision impairment??Yes,?If yes, what is the vision impairment??Glasses,?Does the patient have a cognition impairment??No.?Fall Risk:?History?Have you had any falls with injury in the past year??No,?Have you had two or more falls in the past year??No.?SDOH Questions:?SDOH Questions?In the past year have you been worried about losing housing??No,?In the past year have you or any family members you live with been unable to get any of the following when it was really needed? Check all that apply:?None.? * ROS:?General/Constitutional:?Patient denies?chills, fatigue, fever, headache.?ENT:?Patient denies?decreased sense of smell, any loss of taste, sore throat.?Respiratory:?Patient denies?shortness of breath with exertion, shortness of breath at rest.?Cardiovascular:?Patient denies?chest pain at rest, chest pain with exertion.?Gastrointestinal:?Patient denies?abdominal pain.?Genitourinary:?Patient denies?difficulty urinating, , frequent urination.?Musculoskeletal:?Patient denies?muscle aches.?Peripheral Vascular:?Patient denies?red and blue toes.? * Medical History:? * Surgical History:? * Hospitalization/Major Diagno stic Procedure:? * Family History:?Father: dece ased 85 yrs.?Mother: 95 yrs.?2 brother(s) , 4 sister(s) . 2 daughter(s) . .? Father- AAA Mother-Cardiac 1 brother-Alcoholic, Liver Transplant,Anxiety, No pertinent family medical history sister is bipolar. * Social History:?Tobacco Use:?Tobacco Use/Smoking?Patient is a?former smoker,?How long has it been since you last smoked??> 10 years,?Additional Findings: Tobacco Non-User?Former smoker, currently using no form of tobacco.?Drugs/Alcohol:?Alcohol Screen?Did you have a drink containing alcohol in the past year??Yes,?How often did you have a drink containing alcohol in the past year??2 to 4 times a month (2 points),?How many drinks did you have on a typical day when you were drinking in the past year??1 or 2 drinks (0 point),?How often did you have 6 or more drinks on one occasion in the past year??Never (0 point),?Points?2,?Interpretation?Negative.?Miscellaneous:?no Caffeine, frequency:. Children: yes. no Community involvements. Exercise: yes, walks 3 times a week half an hour. Home smoke detector use: yes. Housing: owning. Living with: spouse. Marital status: . Occupation: weeks/months/years, Retired as a nurse at [employer]. Pets: none. no Travel outside of the [place]. * Medications:?TakingClobetaso l Propionate 0.05 % Cream [...] na useauyes[Allergies Verified] Objective: * Vitals:?Ht: 63, Wt:144, BMI: 25.51, BP:122/68. * ???Past Orders: ???Lab:Vitamin D 25-OH Total (Order Date - 11/08/2023) (Collection Date - 11/08/2023) ? Value Reference Range ?Vitamin D 25-OH Total 67.4 >30 - ng/mL ???Lab:Complete Blood Count Auto Diff (Order Date - 11/08/2023) (Collection Date - 11/08/2023) ? Value Reference Range ?White Blood Count 3.8 L 4. 8-10.8 - X10*3/uL ?Red Blood Count 4.56 4.20 -5.50 - X10*6/uL ?Hemoglobin 13.6 12.0-16.0 - g/dl ?Hematocrit 42.6 37.0-47.0 - % ?Mean Corpuscular Volume 93.4 80.0-98.0 - fL ?Mean Corpuscular Hemoglobin 29.8 27.0-33.0 - pg ?Mean Corpuscular HGB Conc 31.9 31.0-35.0 - g/dl ?Red Cell Distribution Width 13.1 11.0-16.0 - % ?Platelet Count 232 160-4 00 - X10*3/uL ?Mean Platelet Volume 10.4 9.4-12.3 - fL ?Neutrophils Percent Auto 44.8 L 45-73 - % ?Imm Gran Pct Auto 0.3 0. 0-0.4 - % ?Lymphocytes Percent Auto 44.1 H 20-40 - % ?Monocytes Percent Auto 6.8 2-11 - % ?Eosinophils Percent Auto 3.7 0-4 - % ?Basophils Percent Auto 0.3 0-2 - % ?NRBC Pct Auto 0.0 0.0-0. 2 - /100WBC ?Neutrophils Absolute Auto 1.7 L 2.0-8.3 - x10*3/uL ?Imm Gran Abs Auto 0.01 0. 00-0.03 - X10*3/uL ?Lymphocytes Absolute Auto 1.7 1.2-4.9 - X10*3/uL ?Monocytes Absolute Auto 0.3 0.1-1.2 - X10*3/uL ?Eosinophils Absolute Auto 0.1 0.0-0.4 - X10*3/uL ?Basophils Absolute Auto 0.0 0.0-0.2 - X10*3/uL ?NRBC Abs Auto 0.000 0.0-0. 012 - X10*3/uL ???Lab:Comprehensive [place]. P bianca Fast (Order Date - 11/08/2023) (Collection Date - 11/08/2023) ? Value Reference Range ?Sodium 142 135-145 - mmo l/L ?Bilirubin Total 0.5 0.0- 1.0 - mg/dL ?Aspartate Amino Transferase 15 5-31 - U/L ?Alanine Aminotransferase 8 0-31 - U/L ?Total Protein 6.8 6.5-8. 0 - g/dL ?Albumin Level 4.1 3.5-5. 0 - g/dL ?Alkaline Phosphatase 64 39-117 - U/L ?Potassium 3.8 3.3-5.1 - mmol/L ?Chloride 108 96-108 - mm ol/L ?Carbon Dioxide 29 22-29 - mmol/L ?Anion Gap 9 L 12-20 - ?Blood Urea Nitrogen 12 9-16 - mg/dL ?Creatinine 0.53 0.5-1.4 - mg/dL ?Estimated Glomerular Filt Rate > 60 - ?Glucose Fasting 79 60-9 9 - mg/dL ?Calcium 9.3 8.4-10.2 - m g/dL ???Lab:Lipid Panel (Order Da 11/08/2023) (Collection Date - 11/08/2023) ? Value Reference Range ?Triglycerides 77 <150 - mg/dL ?Cholesterol 239 H <200 - m g/dL ?LDL Cholesterol Calculated 148 H <100 - mg/dL ?HDL Cholesterol 76 >40 - mg/dL ???Lab:UA ClnCatch+Micro w/r flx Cult (Order Date - 11/08/2023) (Collection Date - 11/08/2023) ? Value Reference Range ?Color Urine Yellow - ?Appearance Urine Clear - ?PH 6.0 5.0-9.0 - ?Glucose Urine UA Negative Neg ative - mg/dL ?Urine Blood Negative Negative - ?Specific [place] - Urine 1.020 1.005-1.025 - ?Urine Protein Negative Neg-Tr keyla - mg/dL ?Urine Ketones Negative Negati ve - mg/dL ?Nitrite Urine Negative Negati ve - ?Leukocyte Esterase Urine Negative Negative - ?RBC Urine 0-2 0-2 - /HPF ?WBC Urine 0-5 0-5 - /HPF ?Squamous Epithelial Cell Urine 0-2 0-2 - /HPF ?Bacteria Urine None Seen None Seen - ?Hyaline Casts Urine 0-2 0-2 - /LPF * Examination: ???General Examination: ?GENERAL APPEARANCE:? alert, well hydrated, in no distress .?HEAD:? normocephalic.?EYES:? BOTH EYES, normal.?EARS:? BOTH EARS, normal.?THROAT:? no erythema, no exudate, pharynx normal, abnormal with a small old papule in inner cheek unchanged.?NECK/THYROID:? no cervical lymphadenopathy, no carotid bruit.?SKIN:? good turgor.?HEART:? regular rate and rhythm, no murmurs, rubs, gallops.?LUNGS:? no wheezes, rales, rhonchi, good air movement, clear to auscultation bilaterally.?BREASTS:? no masses palpable bilaterally.?ABDOMEN:? soft, nontender, nondistended, no rebound tenderness.?RECTAL EXAM:? stool guaiac negative, no masses palpable.?FEMALE GENITOURINARY:? tubular splitting machine tender in room, adnexa nontender.? Assessment: * Assessment: 1.?Hepatic hemangioma - D18. 03 (Primary)?2.?Lymphocytosis - D72.820?3.?Vitamin D deficiency - E55.9?4.?Colon cancer screening - Z12.11?5.?Depression screening - Z13.31? Plan: * Treatment: 2.?Vitamin D deficiency? Notes: stable, will continue current regiment.?? 3.?Colon cancer screening?LAB: Occult Blood, Stool, Guaiac?Negative ? Value Reference Range ?Occult Blood, Stool, Guaiac Neg Notes: guaiac negative.??4.?Depression screening? Notes: negative screen.?? * Procedure Codes:?17198 TEST FOR BLOOD, FECES * Follow Up:?2 months to go ov er her trip to [place] * * Sign off status: Completed true * Provider:?Timoteo Hernandez MD Date:?0 11/15/2023 Generated for Orly ruiz/Leora/eTransmitting on:?09/21/2024 12:19 PM EST History and Physical Notes * HPI (History of Present Illness) Category Sub-Category Detail Notes Category Not es Depression Screening PHQ-9 Little inte rest or pleasure in doing things: Not at all patient is a 68 yo female here for review of recent labs and follow up of chronic issues. Feeling down, depressed, or hopeless: No t at all Trouble falling or staying asleep, or sl eeping too much: Not at all Feeling tired or having little energy: N ot at all Poor appetite or overeating: Not at all Feeling bad about yourself o r that you are a failure, or have let yourself or your family down: Not at all Trouble concentrating on thi ngs, such as reading the newspaper or watching television: Not at all Moving or speaking so slowly that other people could have noticed; or the opposite, being so fidgety or restless that you have been moving around a lot more than usual: Not at all Thoughts that you would be b laura off or of hurting yourself in some way: Not at all Total Score: 0 SDOH Questions SDOH Questions In the past year have you been worried about losing housing?: No In the past year have you or any family members you live with been unable to get any of the following when it was really needed? Check all that apply:: None Fall Risk History Have you had any falls with injury i n the past year?: No Have you had two or more falls in the year?: No Communication Needs Communication Needs Does the patient have a hearing impairment: No Does the patient have a vision impairmen t?: Yes ?If yes, what is the vision impairment?: Glasses Does the patient have a cognition impair ment?: No Examination Category Sub-Category Detail Notes Category Not es General Examination GENERAL APPEARANCE: alert, w ell hydrated, in no distress HEAD: normocephalic EYES: BOTH EYES, normal EARS: BOTH EARS, normal THROAT: no erythema, no exud ate, pharynx normal, abnormal with a small old papule in inner cheek unchanged NECK/THYROID: no cervical lymphade nopathy, no carotid bruit HEART: regular rate and rhy thm, no murmurs, rubs, gallops LUNGS: no wheezes, rales, r honchi, good air movement, clear to auscultation bilaterally ABDOMEN: soft, nontender, non distended, no rebound tenderness SKIN: good turgor BREASTS: no masses palpable b ilaterally RECTAL EXAM: stool guaiac negativ e, no masses palpable FEMALE GENITOURINARY: tubular splitting machine tender in room, adnexa nontender
== END 2024-09-21 11:37 | disposition home or self-care (01) ==
PROVIDERS: PCP Internal Medicine; Visit Provider Orthopaedic Surgery
DX: M70.62 Trochanteric bursitis, left hip (principal); M76.32 Iliotibial band syndrome, left leg
CPT/HCPCS: 99213

== ENCOUNTER 2024-09-21 10:23 | Outpatient (REF) | payer MEDICARE, OTHER, SELFPAY ==
--- NOTE | ~2024-09-21 | XR_ITS ---
EXAMINATION: XR PELVIS 1-2 VIEWS HISTORY: M25.559 - Pain in unspecified hip COMPARISON: Comparison is made with the prior examination dated 07/02/2023. FINDINGS: A single AP view of the pelvis is submitted. Osseous mineralization is normal. There is no fracture or dislocation. There is moderate osteoarthritis of both hips with progressive joint space narrowing medially on the right and superiorly on the left when compared to the prior study. The sacroiliac joints are maintained. The soft tissues are unremarkable. XR/XR pelvis 1-2V IMPRESSION: Moderate osteoarthritis of both hips with progression since the prior study. Electronically signed by: Sameer Dukes MD 09/25/2024 08:27 AM EDT
== END 2024-09-21 10:24 | disposition home or self-care (01) ==
LOC: HO.HOSX 10:23
PROVIDERS: PCP Internal Medicine; Visit Provider Orthopaedic Surgery
DX: M25.552 Pain in left hip (principal); M70.62 Trochanteric bursitis, left hip; M76.32 Iliotibial band syndrome, left leg
CPT/HCPCS: 72170; 99212

== ENCOUNTER → 2024-09-21 10:42 | Outpatient (BNV) | payer MEDICARE, OTHER, SELFPAY | PROVIDERS: PCP Internal Medicine; Visit Provider Radiology Diagnostic Radiology | DX: M16.0 Bilateral primary osteoarthritis of hip (principal) | CPT/HCPCS: 72170 ==

== ENCOUNTER 2024-11-10 09:49 | Outpatient (REF) | payer MEDICARE, OTHER, SELFPAY ==
[2024-11-10 09:53] LABS: MANUAL DIFF FLAG NO
[2024-11-10 10:08] LABS: Basophils Percent Auto 0.2 % (0-2); Eosinophils Absolute Auto 0.2 X10*3/uL (0.0-0.4); Hematocrit 41.7 % (37.0-47.0); Hemoglobin 13.4 g/dl (12.0-16.0); Imm Gran Abs Auto 0.01 X10*3/uL (0.00-0.03); Imm Gran Pct Auto 0.2 % (0.0-0.4); Lymphocytes Absolute Auto 1.8 X10*3/uL (1.2-4.9); Lymphocytes Percent Auto 35.5 % (20-40); Mean Corpuscular HGB Conc 32.1 g/dl (31.0-35.0); Mean Corpuscular Hemoglobin 29.8 pg (27.0-33.0); Mean Corpuscular Volume 92.7 fL (80.0-98.0); Mean Platelet Volume 10.8 fL (9.4-12.3); Monocytes Absolute Auto 0.3 X10*3/uL (0.1-1.2); Monocytes Percent Auto 5.9 % (2-11); Neutrophils Absolute Auto 2.8 x10*3/uL (2.0-8.3); Neutrophils Percent Auto 55.2 % (45-73); Platelet Count 224 X10*3/uL (160-400); Red Cell Distribution Width 13.2 % (11.0-16.0); White Blood Count 5.1 X10*3/uL (4.8-10.8)
--- OUTSIDE RECORDS SUMMARY | 2024-11-10 10:10 | XMS_ITS | Patient Health Record ---
Author Organization [facility] [place] Address [address] [facility] [place] [address] Care Team Providers Care Injection Machine Operator Name Role Phone Timoteo Hernandez MD Primary Care Provider Obinna Juarez Unavailable [phone] Allergies Allergen (clinical drug ingredient) Drug/Non Drug [...] Status Risk Notes Problem Acquired hallux valgus (73990157) Hallux valgus (acquired), left foot (M20.12) Active confirmed Problem Acquired hallux valgus (37822239) Hallux valgus (acquired), right foot (M20.11) Active confirmed Plan Of Treatment Pending Test Test Name Order Date X ray : Foot, left 2V 01/07/2016 X ray : Foot, right 2V 01/07/2016 X ray : Foot, left 3V 02/24/2021 X ray : Foot, right 3V 02/24/2021 [id number]-Rzls Destruction, 08-0103/09/2016 89577-Lsou Destruction, 08-0101/07/2016 54621-Twds Destruction, 08-0102/03/2016 11605-Uzhq Destruction, 08-0109/16/2017 61859-Aefg Destruction, 08-0104/07/2018 83131-Ujlx Destruction, 08-0106/30/2018 73230-Opdk Destruction, 08-0101/06/2018 07631-Vlus Destruction, 08-0107/26/2017 Insurance Providers Payer Name Payer Address Payer Phone Subscriber Number Group Number Insured Name Patient Relationship to Insured Coverage Start Date Coverage End Date Medicare National Govt [facility] [address] [place] [address] [id number] Luis Haines Self - patient is the insured [facility] [address] [place] [id number] Luis Haines Self - patient is the insured Medical (General) History Medical History History ICD Code osteoarthritis Knee Pain Reflux Measles Mumps Chicken pox Skin disorder Interstitial cystitis Surgical History Surgery Date(Month/Year) hysterectomy 1997 colonoscopy, endoscopy 03/2021
[2024-11-10 10:40] LABS: Alanine Aminotransferase 10 U/L (0-31); Albumin Level 4.1 g/dL (3.5-5.0); Alkaline Phosphatase 61 U/L (39-117); Anion Gap 8 (12-20); Aspartate Amino Transferase 20 U/L (5-31); Bilirubin Total 0.7 mg/dL (0.0-1.0); Blood Urea Nitrogen 11 mg/dL (9-16); Calcium 9.5 mg/dL (8.4-10.2); Carbon Dioxide 32 mmol/L (22-29); Chloride 107 mmol/L (96-108); Cholesterol 210 mg/dL (<200); Estimated Glomerular Filt Rate > 60; Glucose Fasting 78 mg/dL (60-99); HDL Cholesterol 82 mg/dL (>40); LDL Cholesterol Calculated 112 mg/dL (<100); Potassium 3.8 mmol/L (3.3-5.1); Sodium 143 mmol/L (135-145); Total Protein 6.7 g/dL (6.5-8.0); Triglycerides 80 mg/dL (<150)
[2024-11-10 10:55] LABS: Appearance Urine Clear; Color Urine Yellow; Glucose Urine UA Negative (Negative); Leukocyte Esterase Urine Negative (Negative); Nitrite Urine Negative (Negative); Urine Blood Negative (Negative); Urine Ketones Negative (Negative); Urine Protein Negative (Neg-Trace)
[2024-11-10 11:08] LABS: Bacteria Urine None Seen (None Seen); Hyaline Casts Urine 0-2 /LPF (0-2); RBC Urine 0-2 /HPF (0-2); Squamous Epithelial Cell Urine 0-2 /HPF (0-2); WBC Urine 0-5 /HPF (0-5)
== END 2024-11-10 09:50 | disposition home or self-care (01) ==
LOC: HO.LNP 09:49
PROVIDERS: Visit Provider Internal Medicine
DX: Z13.6 Encounter for screening for cardiovascular disorders (principal); D72.820 Lymphocytosis (symptomatic); E55.9 Vitamin D deficiency, unspecified
CPT/HCPCS: 80053; 80061; 81001; 82306; 85025

== ENCOUNTER 2025-01-08 10:39 | Outpatient (AMB) | payer MEDICARE, OTHER, SELFPAY ==
--- NOTE | 2025-01-08 10:47 | MHC.OFFVIS ---
Intake Visit Reasons: OV-LT Hip OA s/p Intake Note: Luis is a 69 year old female who presents today for a follow up of her left hip OA. Physical therapy was ordered and finished, she noted that she had no relief. She states no tingling or numbness but has a constant dullache with any daily activities. She would like to discuss injections today. Allergies meperidine (From Demerol) Allergy (Verified 01/08/25 10:49) Unknown HPI HPI OV-LT Hip OA s/p: Details: Luis is a 69 year old female who presents today for a follow up of her left hip OA. Patient reports she never had injections and would like to discuss that today. Physical therapy was ordered and finished, she noted that she had no relief. She states no tingling or numbness but has a constant dullache with any daily activities. Her radiographs do show osteoarthritis but all her pain has been lateral and so we then focusing on the iliotibial band but she states that the physical therapy has not helped at all. She continues to have difficulty getting through her day or engaging in daily activities without pain. She describes a story of getting into a go-cart with her grandkids and having difficult time getting and out of a low vehicle. [facility] Medical History Hiatal hernia Interstitial cystitis Osteoarthritis Osteopenia Vertigo Vitamin D deficiency Surgical History History of esophagogastroduodenoscopy (EGD) Hx of colonoscopy Hx of hysterectomy Social History (Updated 05/22/22 @ 10:47 by Elaine Lopez [facility]) Patient Tobacco Use Status: Former Tobacco user Current occupational status: retired Physical Exam Extrem Other: There is tenderness over the greater trochanter and soreness into the iliotibial band. She has no internal rotation of the left hip when flexed to 90 degrees compared to normal internal rotation of the proximally 20 degrees on the contralateral side. He has a positive impingement test. Results Reviewed Results Reviewed: I personally reviewed relevant radiographs. Moderate arthritic changes left greater than right bilateral hips Assessment & Plan Assessment & Plan (1) Osteoarthritis of left hip: Code(s): M16.12 - Unilateral primary osteoarthritis, left hip Category: Medical Plan: This is a 69-year-old woman with left hip osteoarthritis. We tried treating her lateral symptoms but she has just been getting worse and on exam she has very restricted in internal rotation. She has minimal groin pain which is atypical but she states she has been noticing that her left foot is externally rotating when she walks. Given these findings I recommend an intra-articular injection into the left hip. I will send her to pain management and they will do the injection I would like to see her back 4 weeks after the injection. Plan I will have my colleagues in Pain Management contact her to set up a Left Hip Intra-articular injection Orders: Referrals Pain Management Referral M16.12 - Unilateral primary osteoarthritis, left hip Coding Level of Care Code Est Pt Level 3 (15663) Diagnoses Osteoarthritis of left hip M16.12
--- OUTSIDE RECORDS SUMMARY | 2025-01-08 11:56 | XMS_ITS | Patient Health Record ---
Author Organization Timoteo Hernandez MD Address [address] [place] [phone] Care Team Providers Care Fisheries Biologist Name Role Phone Timoteo Hernandez Primary Care Provider [phone] Allergies Allergen (clinical drug ingredient) Drug/Non Drug Allergy documented on EMR Reaction Allergy Type Onset Date Status meperidine Demerol dizzy nauseau Drug Allergy Ac tive Results Component Value Reference Range Notes Complete Blood Count Auto Di ff Reviewed date:11/10/2024 10:25:40 AM Interpretation: Performing Lab:[facility], [address] [place] [phone] Notes/Report: White Blood Count 5.1 4.8-10.8 X10*3/uL Red Blood Count 4.50 4.20-5.50 X10*6/uL Hemoglobin 13.4 12.0-16.0 g/dl Hematocrit 41.7 37.0-47.0 % Mean Corpuscular Volume 92.7 80.0-98.0 fL Mean Corpuscular Hemoglobin 29.8 27.0-33.0 pg Mean Corpuscular HGB Conc 32.1 31.0-35.0 g/dl Red Cell Distribution Width 13.2 11.0-16.0 % Platelet Count 224 160-400 X10*3/uL Mean Platelet Volume 10.8 9.4-12.3 fL Neutrophils Percent Auto 55.2 45-73 % Imm Gran Pct Auto 0.2 0.0-0.4 % Lymphocytes Percent Auto 35.5 20-40 % Monocytes Percent Auto 5.9 2-11 % Eosinophils Percent Auto 3.0 0-4 % Basophils Percent Auto 0.2 0-2 % NRBC Pct Auto 0.0 0.0-0.2 /100WBC Neutrophils Absolute Auto 2.8 2.0-8.3 x10*3/uL Imm Gran Abs Auto 0.01 0.00-0.03 X10*3/uL Lymphocytes Absolute Auto 1.8 1.2-4.9 X10*3/uL Monocytes Absolute Auto 0.3 0.1-1.2 X10*3/uL Eosinophils Absolute Auto 0.2 0.0-0.4 X10*3/uL Basophils Absolute Auto 0.0 0.0-0.2 X10*3/uL NRBC Abs Auto 0.000 0.0-0.012 X10*3/uL Comprehensive [place]. Panel Fa st Reviewed date:11/10/2024 04:02:28 PM Interpretation: Performing Lab:[facility], [address] [place] [phone] Notes/Report: Sodium 143 135-145 mmol/L Potassium 3.8 3.3-5.1 mmol/L Chloride 107 96-108 mmol/L Carbon Dioxide 32 22-29 mmol/L Anion Gap 8 12-20 Blood Urea Nitrogen 11 9-16 mg/dL Creatinine 0.55 0.5-1.4 mg/dL Estimated Glomerular Filt Rate > 60 Chronic Kidney Disease: Estimated GFR < 60 mL/min/1.73m2 Severe Kidney Disease: Estimated GFR < 15 mL/min/1.73m2 Glucose Fasting 78 60-99 mg/dL Calcium 9.5 8.4-10.2 mg/dL Bilirubin Total 0.7 0.0-1.0 mg/dL Aspartate Amino Transferase 20 5-31 U/L Alanine Aminotransferase 10 0-31 U/L Total Protein 6.7 6.5-8.0 g/dL Albumin Level 4.1 3.5-5.0 g/dL Alkaline Phosphatase 61 39-117 U/L Lipid Panel Reviewed date:11/10/2024 11:28:55 AM Interpretation: Performing Lab:[facility], [address] [place] [phone] Notes/Report: Triglycerides 80 <150 mg/dL Desirable Triglyceride: less than 150 mg/dL Borderline High Triglyceride 150-199 mg/dL High Triglyceride: 200-499 mg/dL Very High Triglyceride: greater than or equal to 5OO mg/dL Cholesterol 210 <200 mg/dL Desirable Cholesterol: less than 200 mg/dL Borderline High Cholesterol: 200-239 mg/dL High Cholesterol: greater than 239 mg/dL LDL Cholesterol Calculated 112 <100 mg/dL Desirable LDL: less than 100 mg/dL Near Optimal/Above Optimal LDL: 110-129 mg/dL Borderline High LDL: 130-159 mg/dL High LDL: 160-189 mg/dL Very High LDL: greater than or equal to 190 mg/dL HDL Cholesterol 82 >40 mg/dL Desirable HDL: greater than 40 mg/dL Note: This HDL assay may give artificially low results in patients with liver disease. Vitamin D 25-OH Total Reviewed date:11/10/2024 03:35:55 PM Interpretation: Performing Lab:[address] [phone] Notes/Report: Vitamin D 25-OH Total 60.0 >30 ng/mL Health Based Reference Values* < 20 ng/mL Deficient 20-30 ng/mL Insufficient > 30 ng/mL Sufficient *Balbir BENJAMIN. N Engl J Med. 2007;357:266-280 There is no well-established upper level of normal vitamin D levels. Some laboratories use 50 ng/mL as an upper limit of normal. However, toxicity is patient-dependent and may occur at any level. Careful correlation with the patient's presentation is necessary and, if there is concern for vitamin D toxicity, treatment should be considered irrespective of the serum level. Care must be taken in interpreting Vitamin [...] LC-MS/MS. UA ClnCatch+Micro w/rflx Cul t Reviewed date:11/10/2024 03:41:26 PM Interpretation: Performing Lab:[facility], [address] [place] [phone] Notes/Report: Urine, Clean Catch Color Urine Yellow Appearance Urine Clear PH 6.0 5.0-9.0 Glucose Urine UA Negative Negative mg/dL Urine Blood Negative Negative Specific [place] - Urine 1.010 1.005-1.025 Urine Protein Negative Neg-Trace mg/dL Urine Ketones Negative Negative mg/dL Nitrite Urine Negative Negative Leukocyte Esterase Urine Negative Negative RBC Urine 0-2 0-2 /HPF WBC Urine 0-5 0-5 /HPF Squamous Epithelial Cell Urine 0-2 0-2 /HPF Bacteria Urine None Seen None Seen Hyaline Casts Urine 0-2 0-2 /LPF XR pelvis 1-2V Reviewed date:09/25/2024 12:48:59 PM Interpretation: Performing Lab: Notes/Report: [facility] [address] [place] [address] XRay Report Signed Patient: Luis Haines MR#: [id number] : 1955 Acct:[id number] Age/Sex: 69 / F ADM Date: 09/21/24 Loc: HO.HOSX Attending Dr: Reginald Islas MD Ordering Physician: Reginald Islas MD Date of Service: 09/21/24 Procedure(s): XR pelvis 1-2V Accession Number(s): [id number] cc: Timoteo Hernandez MD; Reginald Islas MD EXAMINATION: XR PELVIS 1-2 VIEWS HISTORY: M25.559 - Pain in unspecified hip COMPARISON: Comparison is made with the prior examination dated 07/02/2023. FINDINGS: A single AP view of the pelvis is submitted. Osseous mineralization is normal. There is no fracture or dislocation. There is moderate osteoarthritis of both hips with progressive joint space narrowing medially on the right and superiorly on the left when compared to the prior study. The sacroiliac joints are maintained. The soft tissues are unremarkable. XR/XR pelvis 1-2V IMPRESSION: Moderate osteoarthritis of both hips with progression since the prior study. Electronically signed by: Sameer Dukes MD 09/25/2024 08:27 AM EDT RP Dictated By: Sameer Dukes MD Signed By: <Electronically signed by Sameer Dukes MD in OV> 09/25/24 08 DD/ 41 TD/TT: 09/21/241046 Educational Technology Specialist: [facility] [address] [place] [address] [place] [address] XRay Report Signed Patient: Luis Haines MR#: [id number] : 1955 Acct:[id number] Age/Sex: 69 / F ADM Date: 09/21/24 [facility] Dr: Reginald Islas MD Ordering Physician: Reginald Islas MD Date of Service: 09/21/24 Procedure(s): XR pelvis 1-2V Accession Number(s): [id number] cc: Timoteo Hernandez MD; Reginald Islas MD EXAMINATION: XR PELV IS 1-2 VIEWS HISTORY: M25.559 - Pain in unspecified hip COMPARISON: Comparis on is made with the prior examination dated 07/02/2023. FINDINGS: A single A P view of the pelvis is submitted. Osseous mineralization is normal. There is no fracture or dislocation. There is moderate osteoarthritis of both hips with progressive joint space narrowing medially o n the right and superiorly on the left when compared to the prio r study. The sacroiliac joints are maintained. The soft tissues are unremarkable. XR/XR pelvis 1-2V IMPRESSION: Moderate osteoarthritis of both hips with progression since the prior study. Electronically flor d by: Sameer Dukes MD 09/25/2024 08:27 AM EDT RP Dictated By: Sameer Dukes MD Signed By: <Electronically signed by Sameer Dukes MD in OV> 09/25/24 0827 DD/ 1042 TD/TT: 09/21/24 1047 Educational Technology Specialist: Reason For Referral Reason positive Guaiac wi ll need a colonscopy Diagnosis 1 Guaiac + stool (R19. 5) Referral Organization Timoteo Hernandez MD Referring Provider First Name Timoteo Referring Provider Last Name David Referring Provider Speciality Internal M edicine Referred Provider Sameer Gaytan Referred Provider Specialty Gastroentero logy General Notes Molly Mcgregor 0 11/17/2024 10:02:28 AM >info faxed Referral Priority Routine Referral Appointment Date 11/23/2024 Medications Medication SIG (Take, Route, Frequency, Duration) Notes Start Date End Date Status Meclizine HCl 12.5 MG 1 tablet as needed Orally Once a day for 90 days Active Colace 100 MG 1 capsule Orally Onc e a day Active Clobetasol Propionate 0.05 % 1 application Externally Twice a day for 10 day(s) Active Vitamin D3 2000 UNIT 1 tablet Orally Onc e a day 10/08/2017 Active Advil 200 MG 3 tabs Orally every 6 hrs Active Antivert 12.5 MG TAKE 1 TABLET BY PRISCILLA TH 3 TIMES A DAY for 13 Not-Taking Immunizations Vaccine Route Administration Date Status Comme nts Flu Vaccine Unknown 04/30/2014 Administered [facility] TDaP IM Intramuscular 08/13/2014 Administered Shingles IM Intramuscular 08/21/2014 Administered Flu Vaccine IM Intramuscular 05/09/2015 Administered [facility] Fluarix Quadrivalent Unknown 04/28/2016 Administered [facility] PPSV23 (Pnemovax) IM Intramuscular 09/17/2016 Administered Prevnar 13 IM Intramuscular 10/08/2017 Administered Fluarix Quadrivalent Unknown 05/03/2018 Administered pt was given the vaccine at [facility] Fluarix Quadrivalent IM Intramuscular 05/12/2019 Administered pt was given th e vaccine at [facility] in [place]. Fluarix Quadrivalent Unknown 04/18/2020 Administered [facility] Influenza High Dose IM Intramuscular 05/06/2021 Administer [...] Problem Status W/U Status Risk Notes Problem 31152408 Lymphocytosis (D72.820) Active confirmed Problem 32174173 Vitamin D deficiency (E55.9) Active confirmed Problem 003617643 Gastroesophageal reflux disease without esophagitis (K21.9) Active confirmed Problem Osteoporosis (13940627) Osteoporosis (M81.0) Active confirmed Problem 279932532 Osteopenia determined by x-ray (M85.80) Active confirmed Problem 81905566 Esophageal dysphagia (R13.10) Active confirmed Problem 3586771524254206 Arthritis of le ft hip (M16.12) Active confirmed Problem 374008969 Right renal mass (N28.89) Active confirmed Vital Signs Blood pressure diastolic 70 mm Hg 11/17/2024 kianna ght is down 1 pound since 01-27-24 Height 63 in 11/17/2024 weight is down 1 pound since 01-27-24 Blood pressure systolic 122 mm Hg 11/17/2024 weig ht is down 1 pound since 01-27-24 Weight 141 lbs 11/17/2024 weight is down 1 pound since 01-27-24 BMI 24.97 kg/m2 11/17/2024 weight is down 1 pound since 01-27-24 Encounters Encounter Location Date Provider Diagnosis Timoteo Hernandez MD [address] [place] [id number] 11/10/2024 Timoteo Hernandez Lymphocytosis D72.82 0 and Vitamin D deficiency E55.9 Timoteo Hernandez MD [address] [place] [id number] 01/27/2024 Timoteo Hernandez Right renal mass N28.89 Timoteo Hernandez MD [address] [place] [id number] 05/05/2024 Timoteo Hernandez Encounter for immunization Z23 Timoteo Hernandez MD [address] [place] [id number] 11/17/2024 Timoteo Hernandez Guaiac + stool R19.5 ; Vertigo R42 ; Vitamin D deficiency E55.9 ; Colon cancer screening Z12.11 and Depression screening Z13.31 Assessments Encounter Date Diagnosis (ICD Code) Assessment Notes Treatment Notes Treatment Clinical Notes Section Notes 11/10/2024 Lymphocytosis (ICD-10 - D72.820) 01/27/2024 Right renal mass (ICD-10 - N28.89) went over the results of her consult at [facility] Total time spent on the date of the encounter is 35 minutes including both face to face time spent and time spent reviewing documentation, pertinent lab data, studies and counseling the patient. 05/05/2024 Encounter for immunization (ICD-10 - Z23) 11/17/2024 Guaiac + stool (ICD-10 - R19.5) send to dr gaytan for colonoscopy 11/17/2024 Vertigo (ICD-10 - R42) 11/10/2024 Vitamin D deficiency (ICD-10 - E55.9) 11/17/2024 Vitamin D deficiency (ICD-10 - E55.9) stable, will continue current regiment 11/17/2024 Colon cancer screening (ICD-10 - Z12.11) guaiac positive 11/17/2024 Depression screening (ICD-10 - Z13.31) negative screen Plan Of Treatment Pending Test Test Name Order Date Electrocardiogram (EKG) 10/08/2017 Electrocardiogram (EKG) 10/20/2018 XR CHEST 2 VIEW PA & LAT 05/22/2022 XR DEXA axial skeleton 11/28/2021 XR DEXA axial skeleton 11/07/2021 MR abdomen wo/w con 09/16/2023 Next Appt Details Provider Name:Timoteo Husain ier, 11/15/2025 07:00:00 AM, [address], [address], [place], [place], [phone], Provider Name:Timoteo Husain ier, 11/22/2025 09:30:00 AM, [address], [address], [place], [place], [phone], Insurance Providers Payer Name Payer Address Payer Phone Subscriber Number Group Number Insured Name Patient Relationship to Insured Coverage Start Date Coverage End Date MEDICARE NHIC [address] [place] [address] [id number] Luis Haines Self - patient is the insured [facility] [address] [id number] Luis Haines Self - patient is the insured Medical (General) History Medical History History ICD Code [id number]/08/2011 father with colon cancer/repeat [address] Gaytan sees upholsterer outside yearly. discussed the need for shing le vaccination and she is to check with insurance 2020 colonoscopy 2020, 5yr repeat Surgical History Surgery Date(Month/Year) hysterectomy 1997
== END 2025-01-08 15:20 | disposition home or self-care (01) ==
LOC: HO.HOS 10:39
PROVIDERS: PCP Internal Medicine; Visit Provider Orthopaedic Surgery
DX: M16.12 Unilateral primary osteoarthritis, left hip (principal)
CPT/HCPCS: 99213

== ENCOUNTER → 2025-01-08 10:39 | Outpatient (BNVA) | payer MEDICARE, OTHER, SELFPAY | PROVIDERS: PCP Internal Medicine; Visit Provider Orthopaedic Surgery | DX: M16.12 Unilateral primary osteoarthritis, left hip (principal) | CPT/HCPCS: 99212 ==

== ENCOUNTER 2025-01-26 11:06 | Outpatient (AMB) | payer MEDICARE, OTHER, SELFPAY ==
[2025-01-26 11:28] VITALS: BP 126/62; PULSE 91; RESP 16; O2SAT 97; BMI 25.6
--- NOTE | 2025-01-26 11:28 | A.OFFVIS_ITS ---
Vital Signs 01/26/25 11:28 Height 5 ft 2.5 in Weight 142 lb BMI 25.6 BP 126/62 Blood Pressure Location Lt brachial Position Sitting Respiration 16 Pulse 91 Pulse Source Pulse Oximeter Pulse Oximetry (%) 97 Oxygen Delivery Method Room Air Intake Visit Reasons: hip injection Precision Farming Specialist Required: No Manager Diversity: Manager Diversity Present Accompanied by: Jonah Chester Allergies meperidine (From Demerol) Allergy (Verified 01/26/25 11:29) Unknown Medication List - Last Reconciled 01/26/25 by Eleanor Mcclure LPN cholecalciferol (vitamin D3) (Vitamin D3) 50 mcg PO DAILY docusate sodium (Colace) 100 mg PO DAILY ibuprofen (Advil) 400 mg PO Q8H PRN meclizine 25 mg PO BID PRN HPI HPI hip injection: Details: History of Present Illness The patient is a 69-year-old female presenting with left hip pain. The pain is described as a dull ache, primarily located in the lateral aspect of the hip, specifically in the greater trochanteric region. The patient reports that the pain is exacerbated by daily activities and is particularly severe when ascending stairs. The patient has previously attempted physical therapy, which did not provide relief. She has been advised to try an intra-articular injection, with a follow- up plan to consider a greater trochanteric injection if necessary. The patient also experiences episodes of positional vertigo, for which she takes meclizine as needed. Pain Description - Onset: Chronic, with no specific inciting event mentioned - Quality: Dull ache - Location: Lateral aspect of the left hip, greater trochanteric region - Exacerbating factors: Daily activities, stair climbing - Previous interventions: Physical therapy without relief Physical Exam - Musculoskeletal: Examination of the left hip region for pain localization Pain Management - Affect: Pain impacts daily activities, particularly stair climbing - Analgesia: No current pain medication mentioned; intra-articular injection planned - Activities of Daily Living: Pain interferes with daily activities and mobility Procedure - Procedure: Left hip intra-articular injection under ultrasound guidance - Consent: Informed consent obtained for the procedure - Description: Patient was placed supine, site prepped, and a 21-gauge needle was used to inject 40 mg of triamcinolone mixed with ropivacaine 0.25% - Outcome: Procedure was well tolerated, and images were saved for the record [facility] Medical History Hiatal hernia Interstitial cystitis Osteoarthritis Osteopenia Vertigo Vitamin D deficiency Surgical History History of esophagogastroduodenoscopy (EGD) Hx of colonoscopy Hx of hysterectomy Social History (Updated 05/22/22 @ 10:47 by Elaine Lopez [facility]) Patient Tobacco Use Status: Former Tobacco user Current occupational status: retired Physical Exam Vital Signs: Last Vital Signs Pulse 91 01/26/25 11:28 Resp 16 01/26/25 11:28 BP 126/62 01/26/25 11:28 Pulse Ox 97 01/26/25 11:28 Oxygen Delivery Method Room Air 01/26/25 11:28 BMI result Body Mass Index 25.6 Assessment & Plan Assessment & Plan (1) Bilateral hip joint arthritis: Code(s): M16.0 - Bilateral primary osteoarthritis of hip Category: Medical Plan Plan - Administered an intra-articular injection to address left hip pain, with a follow-up in six weeks to assess efficacy. - If the intra-articular injection is ineffective, consider a greater trochanteric injection as the next step. - Monitor for any adverse effects or changes in pain levels following the injection. Patient was informed and verbally consented to the use of an ambient scribe for clinic note documentation during this visit. Discussion Notes I discussed with the patient the plan to administer an intra-articular injection for her left hip pain, explaining that if this does not provide relief, a greater trochanteric injection may be considered as the next step. We reviewed the procedure, including the use of ultrasound guidance and the expected outcomes. The patient was informed about the follow-up plan in six weeks to evaluate the effectiveness of the injection. Patient Instructions - Follow up in six weeks to assess the effectiveness of the injection. - Monitor for any changes in pain or adverse effects after the injection. - Avoid activities that may exacerbate hip pain, such as stair climbing, until further notice. Coding Level of Care Code New Pt Level 4 (23528) Diagnoses Bilateral hip joint arthritis M16.0
--- OUTSIDE RECORDS SUMMARY | 2025-01-26 11:45 | XMS_ITS | Patient Health Record ---
Author Organization [facility] Address [address] [place] [address] Care Team Providers Care Web Consultant Name Role Phone Timoteo Hernandez MD Primary Care Provider Smaeer Ahuja [phone] Allergies Allergen (clinical drug ingredient) Drug/Non Drug Allergy documented on EMR Reaction Allergy Type Onset Date Status meperidine Demerol IV (uncoded) Unknown Allergy Active Reason For Referral No Information Medications Medication SIG (Take, Route, Frequency, Duration) Notes Start Date End Date Status Meclizine HCl PRN Active Tylenol Active Vitamin D3 50 MCG (1999) Orally Active Advil 200 MG 1 tablet with food o r milk as needed Orally NEEDED PRN Activ e Colace 100 MG Orally Once a day Active Immunizations Vaccine Route Administration Date Status Comme nts Influenza Unknown 05/01/2020 Administered Influenza Unknown 04/18/2021 Administered Influenza Unknown 05/05/2022 Administered Problems Problem Type SNOMED Code ICD Code Onset Dates Problem Status W/U Status Risk Notes Problem 830108768 Encounter for screening for malignant neoplasm of colon (Z12.11) Active confirmed Problem Constipation (55238311) Constipation (K59.00) Active confirmed Problem Dysphagia (24412619) Dysphagia (R13.10) Active confirmed Problem Abnormal feces (164284799) Heme + stool (R19.5) Active confirmed Problem 97839006 Constipation, unspecified constipation type (K59.00) Active confirmed Problem Esophageal motility disorder (09579717) Esophageal motility disorder (K22.4) Active confirmed Problem 49213216 Constipation by delayed colonic transit (K59.01) Active confirmed Problem Diverticular disease of colon (977323457) Diverticular disease of colon (K57.30) Active confirmed Problem 66697738 Esophageal dysphagia (R13.10) Active confirmed Problem History of adenomatous polyp of colon (891077077) History of adenomatous polyp of colon (Z86.0101) Active confirmed Vital Signs Blood pressure diastolic 77 mm Hg 11/23/2024 Height 63 in 11/23/2024 Blood pressure systolic 111 mm Hg 11/23/2024 Weight 143 lbs 11/23/2024 BMI 25.33 kg/m2 11/23/2024 Procedures Procedure Date Ordered Date Performed Result Body Sit e COLONOSCOPY 11/23/2024 N/A Encounters Encounter Location Date Provider Diagnosis [facility] [address] [place] [address] 11/23/2024 Sameer Orozco History of adenomato us polyp of colon Z86.0101 ; Heme + stool R19.5 and Constipation K59.00 Assessments Encounter Date Diagnosis (ICD Code) Assessment Notes Treatment Notes Treatment Clinical Notes Section Notes 11/23/2024 Heme + stool (ICD-10 - R19.5) Overall, Kaylyn appears quite well. In regard to the heme-positive stool we did review that this could be a possible false positive in relation to recent ingestion of red meat, NSAIDs, or simply some straining during a bowel movement that might have caused some residual small amounts of blood in the anal canal or rectal area. However, given that it has been almost 4 years since her last colonoscopy, she has a history of tubular adenomas, and has a family history of colon cancer, I did recommend a colonoscopy for definitive evaluation to rule out polyps or any other lesions. We did review the rationale for this in regard to colorectal cancer prevention and/or early detection. Full consent has been taken for this, including risks of bleeding and perforation. The procedure will be done with monitored anesthesia care. In regard to her constipation I did recommend that she use the Colace twice a day and possibly add MiraLAX on a daily and regular basis rather than just as needed so as to avoid straining. Kaylyn was comfortable with this plan. Thank you again for allowing me to participate in Kaylyn's care. I shall continue to keep you advised of her progress. 11/23/2024 History of adenomatous polyp of colon (ICD-10 - Z86.0101) Overall, Kaylyn appears quite well. In regard to the heme-positive stool we did review that this could be a possible false positive in relation to recent ingestion of red meat, NSAIDs, or simply some straining during a bowel movement that might have caused some residual small amounts of blood in the anal canal or rectal area. However, given that it has been almost 4 years since her last colonoscopy, she has a history of tubular adenomas, and has a family history of colon cancer, I did recommend a colonoscopy for definitive evaluation to rule out polyps or any other lesions. We did review the rationale for this in regard to colorectal cancer prevention and/or early detection. Full consent has been taken for this, including risks of bleeding and perforation. The procedure will be done with monitored anesthesia care. In regard to her constipation I did recommend that she use the Colace twice a day and possibly add MiraLAX on a daily and regular basis rather than just as needed so as to avoid straining. Kaylyn was comfortable with this plan. Thank you again for allowing me to participate in Kaylyn's care. I shall continue to keep you advised of her progress. 11/23/2024 Constipation (ICD-10 - K59.00) Use Colace twice a day. Use Miralax more regularly to avoid straininhg Overall, Kaylyn appears quite well. In regard to the heme-positive stool we did review that this could be a possible false positive in relation to recent ingestion of red meat, NSAIDs, or simply some straining during a bowel movement that might have caused some residual small amounts of blood in the anal canal or rectal area. However, given that it has been almost 4 years since her last colonoscopy, she has a history of tubular adenomas, and has a family history of colon cancer, I did recommend a colonoscopy for definitive evaluation to rule out polyps or any other lesions. We did review the rationale for this in regard to colorectal cancer prevention and/or early detection. Full consent has been taken for this, including risks of bleeding and perforation. The procedure will be done with monitored anesthesia care. In regard to her constipation I did recommend that she use the Colace twice a day and possibly add MiraLAX on a daily and regular basis rather than just as needed so as to avoid straining. Kaylyn was comfortable with this plan. Thank you again for allowing me to participate in Kaylyn's care. I shall continue to keep you advised of her progress. Plan Of Treatment Pending Test Test Name Order Date Esophageal Motility study 07/08/2021 Esophageal Motility study 11/04/2021 COLONOSCOPY 11/23/2024 XR BARIUM SWALLOW-ESOPHAGUS 07/08/2021 COVID-19 ID NOW (Rodas) 07/08/2021 Future Test Test Name Order Date UPPER GI ENDOSCOPY BALLOOON DILATION OF ESOPH 04/22/2011 COLONOSCOPY 04/22/2011 UPPER GI ENDOSCOPY BALLOOON DILATION OF ESOPH 11/27/2020 COLONOSCOPY 11/27/2020 Next Appt Details Provider Name:Sameer Orozco , 02/21/2025 08:30:00 AM, [address] [place] [address] , [place], [place], [phone], Insurance Providers Payer Name Payer Address Payer Phone Subscriber Number Group Number Insured Name Patient Relationship to Insured Coverage Start Date Coverage End Date MEDICARE OF [place] [address] [place] [address] [id number] KAYLNY ARCHULETA Self - patient is the insured [employer]) [address] [place] [address] [id number] KAYLYN ARCHULETA Self - patient is the insured Medical (General) History Medical History History ICD Code Occasional vertigo Denies NM,DM,CVA,Lung disease,renal dise ase Osteoarthritis Interstitial cystitis Osteopenia [...]
--- OUTSIDE RECORDS SUMMARY | 2025-01-26 11:45 | XMS_ITS | Patient Health Record ---
Author Organization Timoteo Hernandez MD Address [address] [place] [phone] Care Team Providers Care Change Control Analyst Name Role Phone Timoteo Hernandez Primary Care Provider Allergies Allergen (clinical drug ingredient) Drug/Non Drug Allergy documented on EMR Reaction Allergy Type Onset Date Status meperidine Demerol dizzy nauseau Drug Allergy Ac tive Results Component Value Reference Range Notes Complete Blood Count Auto Di ff Reviewed date:11/10/2024 10:25:40 AM Interpretation: Performing Lab:[facility], [address] [place] [phone] Notes/Report: White Blood Count 5.1 4.8-10.8 X10*3/uL [...] NRBC Abs Auto 0.000 0.0-0.012 X10*3/uL Comprehensive [place]. Panel Fa st Reviewed date:11/10/2024 04:02:28 PM Interpretation: Performing Lab:[facility], [address] [place] [phone] Notes/Report: Sodium 143 135-145 mmol/L Potassium 3.8 [...] Panel Reviewed date:11/10/2024 11:28:55 AM Interpretation: Performing Lab:[facility], [address] [place] [phone] Notes/Report: Triglycerides 80 <150 mg/dL Desirable Triglyceride: [...] Total Reviewed date:11/10/2024 03:35:55 PM Interpretation: Performing Lab:[address] [address] Notes/Report: Vitamin D 25-OH Total 60.0 >30 [...] t Reviewed date:11/10/2024 03:41:26 PM Interpretation: Performing Lab:[facility], [address] [place] [phone] Notes/Report: Urine, Clean Catch Color Urine Yellow Appearance Urine Clear PH 6.0 5.0-9.0 Glucose Urine UA Negative Negative mg/dL Urine Blood Negative Negative Specific [place] - Urine 1.010 1.005-1.025 Urine Protein Negative Neg-Trace mg/dL Urine Ketones Negative Negative mg/dL Nitrite Urine Negative Negative Leukocyte Esterase Urine Negative Negative RBC Urine 0-2 0-2 /HPF WBC Urine 0-5 0-5 /HPF Squamous Epithelial Cell Urine 0-2 0-2 /HPF Bacteria Urine None Seen None Seen Hyaline Casts Urine 0-2 0-2 /LPF XR pelvis 1-2V Reviewed date:09/25/2024 12:48:59 PM Interpretation: Performing Lab: Notes/Report: [facility] [address] [place] [address] XRay Report Signed Patient: Luis Haines MR#: [id number] : 1955 Acct:[id number] Age/Sex: 69 / F ADM Date: 09/21/24 Loc: HO.HOSX Attending Dr: Reginald Islas MD Ordering Physician: Reginald Islas MD Date of Service: 09/21/24 Procedure(s): XR pelvis 1-2V Accession Number(s): [id number] cc: Timoteo Hernandez MD; Reginald Islas MD [...] OV> 09/25/24 08 DD/ 41 TD/TT: 09/21/241046 Separator Operator: [facility] [address] [place] [address] [place] [address] XRay Report Signed Patient: Luis Haines MR#: [id number] : 1955 Acct:[id number] Age/Sex: 69 / F ADM Date: 09/21/24 [facility] Dr: Reginald Islas MD Ordering Physician: Reginald Islas MD Date of Service: 09/21/24 Procedure(s): XR pelvis 1-2V Accession Number(s): [id number] cc: Timoteo Hernandez MD; Reginald Islas MD [...] 09/25/24 0827 DD/ 1042 TD/TT: 09/21/24 1047 Separator Operator: Reason For Referral Reason positive Guaiac wi [...] Comme nts Flu Vaccine Unknown 04/30/2014 Administered [facility] TDaP IM Intramuscular 08/13/2014 Administered Shingles IM Intramuscular 08/21/2014 Administered Flu Vaccine IM Intramuscular 05/09/2015 Administered [facility] Fluarix Quadrivalent Unknown 04/28/2016 Administered [facility] PPSV23 (Pnemovax) IM Intramuscular 09/17/2016 Administered Prevnar 13 IM Intramuscular 10/08/2017 Administered Fluarix Quadrivalent Unknown 05/03/2018 Administered pt was given the vaccine at [facility] Fluarix Quadrivalent IM Intramuscular 05/12/2019 Administered pt was given th e vaccine at [facility] in [place]. Fluarix Quadrivalent Unknown 04/18/2020 Administered [facility] Influenza High Dose IM Intramuscular 05/06/2021 [...] Problem Status W/U Status Risk Notes Problem 02014814 Lymphocytosis (D72.820) Active confirmed Problem 69120256 Vitamin D deficiency (E55.9) Active confirmed Problem 878228231 Gastroesophageal reflux disease without esophagitis (K21.9) Active confirmed Problem Osteoporosis (57217309) Osteoporosis (M81.0) Active confirmed Problem 909779805 Osteopenia determined by x-ray (M85.80) Active confirmed Problem 47797540 Esophageal dysphagia (R13.10) Active confirmed Problem 0273795218075807 Arthritis of le ft hip (M16.12) Active confirmed Problem 900278789 Right renal mass (N28.89) Active confirmed Vital [...] Timoteo Hernandez MD [address] [place] [id number] 11/10/2024 Timoteo Hernandez Lymphocytosis D72.82 0 and Vitamin D deficiency E55.9 Timoteo Hernandez MD [address] [place] [id number] 01/27/2024 Timoteo Hernandez Right renal mass N28.89 Timoteo Hernandez MD [address] [place] [id number] 05/05/2024 Timoteo Hernandez Encounter for immunization Z23 Timoteo Hernandez MD [address] [place] [id number] 11/17/2024 Timoteo Hernandez Guaiac + stool R19.5 ; Vertigo R42 ; Vitamin D deficiency E55.9 ; Colon cancer screening Z12.11 and Depression screening Z13.31 Assessments Encounter Date Diagnosis (ICD Code) Assessment Notes Treatment Notes Treatment Clinical Notes Section Notes 11/10/2024 Lymphocytosis (ICD-10 - D72.820) 01/27/2024 Right renal mass (ICD-10 - N28.89) went over the results of her consult at [facility] Total time spent on the date of [...] Name:Timoteo Husain ier, 11/15/2025 07:00:00 AM, [address], [address], [place], [place], [phone], Provider Name:Timoteo Husain ier, 11/22/2025 09:30:00 AM, [address], [address], [place], [place], [phone], Insurance Providers Payer Name Payer Address Payer Phone Subscriber Number Group Number Insured Name Patient Relationship to Insured Coverage Start Date Coverage End Date MEDICARE [employer] [address] [place] [address] [id number] Luis Haines Self - patient is the insured [facility] [address] [phone] [id number] Luis Haines Self - patient is the insured Medical (General) History Medical History History ICD Code lmxregrprzf34/08/2011 father with colon cancer/repeat [address] Gaytan sees compensation programs manager yearly. discussed the need for shing le vaccination and she is to check with insurance 2020 colonoscopy 2020, 5yr repeat Surgical History Surgery Date(Month/Year) hysterectomy 1997
--- OUTSIDE RECORDS SUMMARY | 2025-01-26 11:45 | XMS_ITS | Patient Health Record ---
Author Organization [facility] [place] Address [address] [place] [address] Care Team Providers Care Photogrammetric Stereo Compiler Name Role Phone Timoteo Hernandez MD Primary Care Provider Obinna Juarez Unavailable [phone] Allergies Allergen (clinical drug ingredient) Drug/Non Drug Allergy documented on EMR Reaction Allergy Type Onset Date Status meperidine Demerol severe nausea Drug Allergy Ac tive Reason For Referral No Information Medications Medication SIG (Take, Route, Frequency, Duration) Notes Start Date End Date Status Desoximetasone 0.25 % External; Duration: 7 Not-Taking Clobetasol Propionate 0.05 % External; Duration: 30 Not-T aking CeleBREX 200 MG 1 capsule with food Orally Once a day; Duration: 30 day(s) 02/24/2021 Not-Taking Night Splint AFO - L1930 as directed 02/24/2021 Active Vitamin D 2000 UNIT Orally Once a day Active Physical Therapy . . . 2-3x/week; Duration: 3-4 weeks 02/24/2021 Not-Taking Physical Therapy . . . 2-3x/week; Duration: 3-4 weeks 04/07/2021 Not-Taking Colace 100 MG 1 capsule as needed Orally Once a day Active Advil PRN Active Tacrolimus 0.03 % External; Duration: 28 Not-Taking NIFEdipine CR Osmotic PRN Active [...] Status Risk Notes Problem Acquired hallux valgus (18461258) Hallux valgus (acquired), left foot (M20.12) Active confirmed Problem Acquired hallux valgus (75227659) Hallux valgus (acquired), right foot (M20.11) Active confirmed Plan Of Treatment Pending Test Test Name Order Date X ray : Foot, left 2V 01/07/2016 X ray : Foot, right 2V 01/07/2016 X ray : Foot, left 3V 02/24/2021 X ray : Foot, right 3V 02/24/2021 44542-Qwph Destruction, 08-0101/07/2016 42506-Sidi Destruction, 08-0102/03/2016 73877-Mqcq Destruction, 08-0103/09/2016 12935-Tclw Destruction, 08-0107/26/2017 01115-Xdhe Destruction, 08-0109/16/2017 15572-Vftx Destruction, 08-0101/06/2018 34346-Ympz Destruction, 08-0104/07/2018 92574-Hrge Destruction, 08-0106/30/2018 Insurance Providers Payer Name Payer Address Payer Phone Subscriber Number Group Number Insured Name Patient Relationship to Insured Coverage Start Date Coverage End Date Medicare [employer] [address] [place] [address] [id number] Luis Haines Self - patient is the insured [facility] [address] [place] [address] [id number] Luis Haines Self - patient is the insured Medical (General) History Medical History History ICD Code osteoarthritis Knee Pain Reflux Measles Mumps Chicken pox Skin disorder Interstitial cystitis Surgical History Surgery Date(Month/Year) hysterectomy 1997 colonoscopy, endoscopy 03/2021
== END 2025-01-26 11:45 | disposition home or self-care (01) ==
LOC: HO.PMC 11:07
PROVIDERS: PCP Internal Medicine; Referring Provider Orthopaedic Surgery; Visit Provider Internal Medicine
DX: M16.0 Bilateral primary osteoarthritis of hip (principal)
CPT/HCPCS: 20611; 99204

== ENCOUNTER → 2025-01-26 11:06 | Outpatient (BNVA) | payer MEDICARE, OTHER, SELFPAY | PROVIDERS: PCP Internal Medicine; Referring Provider Orthopaedic Surgery; Visit Provider Internal Medicine | DX: M16.0 Bilateral primary osteoarthritis of hip (principal); Z79.52 Long term (current) use of systemic steroids | CPT/HCPCS: 20611; 99202 ==

== ENCOUNTER 2025-02-21 07:14 | Day surgery (SDC) | payer MEDICARE, OTHER, SELFPAY ==
[2025-02-19 14:25] VITALS: BMI 25.3
--- NOTE | 2025-02-20 08:36 | HO.ANESPROP2 ---
Documented by User: Elle Melton NP 02/20/25 08:37 HPI - Anesthesia Eval Consult details Narrative: 69yo F for Colonoscopy PMFSH Active Problems Active Problems: All Active Problems Osteoarthritis of left hip (Acute) Iliotibial band syndrome affecting left lower leg (Acute) Lumbar radiculopathy (Acute) Trochanteric bursitis of left hip (Acute) Bilateral hip joint arthritis (Acute) Bursitis of left hip (Acute) Past Medical History Medical History Hiatal hernia Vitamin D deficiency Osteopenia Interstitial cystitis Osteoarthritis Vertigo Surgical History Surgical History Hx of hysterectomy History of esophagogastroduodenoscopy (EGD) Hx of colonoscopy History of Problems with Anesthesia: No Social History Social History Patient Tobacco Use Status: Former Tobacco user Use of substances other than those prescribed or required for medical reasons: No Are you DNR?: No Advance Directives: No Advance Directives Information Provided: Yes Current occupational status: retired [employer] Allergies Allergy/AdvReac Type Severity Reaction Status Date / Time meperidine (From Demerol) Allergy Unknown Verified 02/21/25 08:03 Home Medications ?Medication ?Instructions ?Recorded ?Confirmed ?Last Taken ?Type cholecalciferol (vitamin D3) 50 50 mcg PO DAILY 01/06/21 02/21/25 Unknown History mcg (2,000 unit) capsule (Vitamin D3) docusate sodium 100 mg capsule 100 mg PO DAILY 01/06/21 02/21/25 Unknown History (Colace) ibuprofen 200 mg tablet (Advil) 400 mg PO Q8H PRN Pain 01/06/21 02/21/25 02/13/25 History meclizine 25 mg tablet 25 mg PO BID PRN Vertigo 01/06/21 02/21/25 Unknown History Exam Height,Weight and Vital Signs: Height 5 ft 3 in Weight 64.864 kg Assessment and Plan Assessment Anesthesia Assessment: Chart Reviewed Final Anesthetic Review History of Problems with Anesthesia: No Documented by User: Lloyd Serna MD 02/21/25 08:46 [facility] Past Medical History Medical History Hiatal hernia Vitamin D deficiency Osteopenia Interstitial cystitis Osteoarthritis Vertigo Functional capacity: independent ambulation Patient : No Family History Family history of problems with anesthesia: No Surgical History Surgical History Hx of hysterectomy History of esophagogastroduodenoscopy (EGD) Hx of colonoscopy Social History Social History Patient Tobacco Use Status: Former Tobacco user Use of substances other than those prescribed or required for medical reasons: No Are you DNR?: No Advance Directives: No Advance Directives Information Provided: Yes Current occupational status: retired [employer] Allergies Allergy/AdvReac Type Severity Reaction Status Date / Time meperidine (From Demerol) Allergy Unknown Verified 02/21/25 08:03 Home Medications ?Medication ?Instructions ?Recorded ?Confirmed ?Last Taken ?Type cholecalciferol (vitamin D3) 50 50 mcg PO DAILY 01/06/21 02/21/25 Unknown History mcg (2,000 unit) capsule (Vitamin D3) docusate sodium 100 mg capsule 100 mg PO DAILY 01/06/21 02/21/25 Unknown History (Colace) ibuprofen 200 mg tablet (Advil) 400 mg PO Q8H PRN Pain 01/06/21 02/21/25 02/13/25 History meclizine 25 mg tablet 25 mg PO BID PRN Vertigo 01/06/21 02/21/25 Unknown History Exam Exam Date and Time: 02/21/2025 Airway Mallampati Class: II TM Dist: >3cm Neck ROM: Full Loose/Missing/Broken Teeth: No Heart: rrr Lungs: cts Other: normal Assessment and Plan Assessment Anesthesia Assessment: Anesthesia Plan Discussed Final Anesthetic Review Family History of Problems with Anesthesia: No NPO: Yes ASA Class: II Final Preanesthetic Review: No Changes in Pt Med Stat, Meds/Allgs Chart Reviewed, Consent Obtained/Reviewed and Anes Risks/Benef Reviewed Patient Risk: Low Procedure Risk: Low Anesthetic Plan Anesthetic Plan: MAC: Disposition: Standard PACU
[2025-02-21 07:46] VITALS: BMI 24.4
[2025-02-21 08:03] VITALS: BP 112/69; PULSE 81; RESP 15; TEMP 37.1; O2SAT 97
[2025-02-21] MEDS: Lactated Ringers 1,000 ML 100 ML IVCONT (08:24)
[2025-02-21 09:59] VITALS: BP 88/58; PULSE 79; RESP 24; TEMP 36.2; O2SAT 95
--- NOTE | 2025-02-21 10:01 | PM.OP ---
Brief Operative Note Date of Service: 02/21/25 Pre-op diagnosis: Heme + stool Post-op diagnosis: other (Colon polyps) Procedure: Colonoscopy to the cecum with bx/removal of cecal polyp and hot snare polypectomy x 2 of cecal polyps Surgeon: Sameer Orozco MD Anesthesia: MAC Was an Wastewater Treatment Plant Operator used for this Procedure?: No Estimated blood loss (mL): 2.0 Pathology: other (A. Cecal polyps x 3) Condition: stable Disposition: PACU
[2025-02-21 10:04] VITALS: BP 102/65; PULSE 79; RESP 22; O2SAT 93
[2025-02-21 10:14] VITALS: BP 108/65; PULSE 82; RESP 14; O2SAT 95
[2025-02-21 10:22] VITALS: BP 118/85; PULSE 82; RESP 14; TEMP 36.1; O2SAT 95
--- NOTE | 2025-02-21 11:05 | OP_ITS ---
DATE OF SERVICE: 02/21/2025 SURGEON: Sameer Oroczo MD INDICATIONS: The patient presents for evaluation of personal history of colon polyps, family history of colon cancer, and heme-positive stool. Full consent has been obtained from her for this, including risks of bleeding and perforation. PREOPERATIVE DIAGNOSIS: POSTOPERATIVE DIAGNOSIS: PROCEDURE PERFORMED: Colonoscopy to the cecum with hot snare polypectomy x2 and biopsy and removal of polyp. ESTIMATED BLOOD LOSS: COMPLICATIONS: ANESTHESIA: Medication used, monitored anesthesia care. ASSISTANTS: SPECIMENS: PREOPERATIVE DIAGNOSES: Personal history of tubular adenoma of the colon, heme-positive stool, family history of colon cancer, and colorectal cancer screening. POSTOPERATIVE DIAGNOSES: Personal history of tubular adenoma of the colon, heme-positive stool, family history of colon cancer, and colorectal cancer screening, 3 cecal polyps, diverticulosis, and internal hemorrhoids. DESCRIPTION OF PROCEDURE: The patient was placed in the left lateral decubitus position. The digital rectal exam revealed no abnormalities. The Seesmic video pediatric colonoscope was entered into the rectum, advanced easily to the cecum. Once in the cecum, I did identify cecal pouch with appendiceal orifice and a normal-appearing ileocecal valve. There was transillumination of light deep in the right lower quadrant. The entire cecum was well visualized. The appendiceal orifice appeared normal. In the cecum were 3 polyps. One was approximately 3 mm in diameter and was removed by cold biopsy forceps completely. A 2nd polyp was approximately 6 mm and grossly adenomatous. This was removed by hot snare polypectomy and recovered by suction. The other polyp was approximately 8 to 10 mm in size and grossly adenomatous. This was also removed by hot snare polypectomy. Both of those were recovered by suction. Both polypectomy sites appeared clean, without any sign of residual polyp nor bleeding. The remainder of the cecum appeared normal. The scope was then slowly withdrawn assessing all mucosal surfaces carefully. Preparation was excellent. I did not visualize any other polyps, colitis, nor angiodysplasia. There was a moderate amount of sigmoid diverticulosis. In the rectum, scope was retroflexed visualizing internal hemorrhoids, but no other pathology. The rectal mucosa appeared normal. Scope was straightened and withdrawn from the patient. She tolerated the procedure well and was returned to the recovery area in stable condition. IMPRESSION: 1. Colon polyps. 2. Diverticulosis. 3. Internal hemorrhoids. PLAN: The results of the pathology will be checked. I would recommend a repeat colonoscopy in 5 years for further surveillance. She was advised not to use any aspirin and NSAIDs for 1 week. She will otherwise see me on a p.r.n. basis. MD CHANTLEL Merida/ROSLYN / [phone]
== END 2025-02-21 10:58 | disposition home or self-care (01) ==
PROVIDERS: PCP Internal Medicine; Visit Provider Internal Medicine
PROC: 0DJD8ZZ Inspection of Lower Intestinal Tract, Via Natural or Artificial Opening Endoscopic (ICD-10-PCS; CPT 45378; principal; 2025-02-21 08:30)
DX: R19.5 Other fecal abnormalities (principal); D12.0 Benign neoplasm of cecum; K57.30 Diverticulosis of large intestine without perforation or abscess without bleeding; K64.8 Other hemorrhoids; Z86.0101 Personal history of adenomatous and serrated colon polyps; Z80.0 Family history of malignant neoplasm of digestive organs
CPT/HCPCS: 45385; 45380; 88305; J2003; J2704; J3010

== ENCOUNTER 2025-02-26 12:32 | Outpatient (AMB) | payer MEDICARE, OTHER, SELFPAY ==
--- OUTSIDE RECORDS SUMMARY | 2025-02-21 03:30 | XMS_ITS ---
Author Organization [facility] Address [address] [place] [id number] Care Team Providers Care Mexican Food Maker Hand Name Role Phone David PEDERSEN, Timoteo Primary Care Provider Sameer Ahuja [phone] REASON FOR VISIT heme positive stools, hx polyps Encounters Encounter Location Date Provider Diagnosis [facility] Outpatient [address] [place] [phone] 02/21/2025 Sameer Orozco Plan Of Treatment No Information Progress Notes * KAYLYN ARCHULETA MDOB:1954 (69 yo F)Acc No.[id number]:02/21/2025 COLON WITH MAC Patient: Trish GONZALEZKAYLYN Hernandez Provider: Marcelo Orozco MD :1955 A ge:69 Y S ex:Female Date:02/21/2025 Address:[address] [place], [place] Pcp:Timoteo Hernandez MD Subjective: * Chief Complaints: * 1 . Heme positive stools, hx polyps. * Medical History: Objective: * Vitals: Assessment: Plan: * Treatment: * * The named appointment provid er may or may not be the originator of this progress note, and it is not deemed complete until electronically signed by the appointment provider. Sign off status: Pending * Provider: Marcelo Orozco MD Date: 02/21/2025 Generated for [place] ng/Faxing/eTransmitting on: 02/26/2025 12:37 PM EDT
--- NOTE | 2025-02-26 12:36 | A.OFFVIS_ITS ---
Vital Signs 02/26/25 12:52 Height 5 ft 2 in Weight 140 lb BMI 25.6 Intake Visit Reasons: OV - Left Hip Intra-articular Injection 01/26/25 Intake Note: Luis is a 69 year old female who presents today for a follow up of her Bilateral Hip OA. Left Hip intra-articular injection done with pain management on 01/26/25. She reports the injections helped her slightly but not as much as she hoped for. Reports she still has trouble ambulating up stairs and prolonged walking. She says sleeping has been better since the injection. She takes Advil and applies topical gel which does offer some adequate relief. Allergies meperidine (From Demerol) Allergy (Verified 02/26/25 12:52) Unknown HPI HPI OV - Left Hip Intra-articular Injection 01/26/25: Details: Luis is a 69 year old female who presents today for a follow up of her Bilateral Hip OA. Left Hip intra-articular injection done with pain management on 01/26/25. She reports the injections helped her slightly but not as much as she hoped for. Reports she still has trouble ambulating up stairs and prolonged walking. She says sleeping has been better since the injection. She takes Advil and applies topical gel which does offer some adequate relief. [facility] Medical History Hiatal hernia Vitamin D deficiency Osteopenia Interstitial cystitis Osteoarthritis Vertigo Surgical History Hx of hysterectomy History of esophagogastroduodenoscopy (EGD) Hx of colonoscopy Social History Patient Tobacco Use Status: Former Tobacco user Current occupational status: retired Physical Exam Vital Signs: BMI result Body Mass Index 25.6 Extrem Other: On exam she has got very restricted internal rotation of the left hip with reproduction of lateral hip pain with impingement testing. No groin pain. Assessment & Plan Assessment & Plan (1) Osteoarthritis of left hip: Code(s): M16.12 - Unilateral primary osteoarthritis, left hip Category: Medical Plan: This is a 69-year-old woman with osteoarthritis of the left hip. Her symptoms are slightly atypical but her motion is so restricted I continue to be convinced that she would benefit from hip arthroplasty. Intra-articular injection was helpful but not as helpful as she would have like. She is interested in getting PRP injections. Apparently [facility] injects for 350 dollars versus 750 on our end. I explained the biology behind PRP and would wait at least another 2 months until after the steroid injection. I discussed surgery with her. She is still pretty has been to surgery. She will look into the beltran options for PRP and get back to me as needed. Coding Level of Care Code Est Pt Level 3 (20750) Diagnoses Osteoarthritis of left hip M16.12
--- OUTSIDE RECORDS SUMMARY | 2025-02-26 12:38 | XMS_ITS | Patient Health Record ---
Author Organization [facility] [place] Address [address] [facility] [place] [address] Care Team Providers Care Retail Supervisor Name Role Phone Timoteo Hernandez MD Primary Care Provider Obinna Juarez Unavailable [phone] Allergies Allergen (clinical drug ingredient) Drug/Non Drug [...] Problem Status W/U Status Risk Notes Problem Hallux valgus (acquired), left foot (M20.12) Active confirmed Problem Acquired hallux valgus (68130815) Hallux valgus (acquired), right foot (M20.11) Active confirmed Plan Of Treatment Pending Test Test Name Order Date X ray : Foot, left 2V 01/07/2016 X ray : Foot, right 2V 01/07/2016 X ray : Foot, left 3V 02/24/2021 X ray : Foot, right 3V 02/24/2021 85472-Nhmy Destruction, 08-0101/07/2016 08723-Exzv Destruction, 08-0102/03/2016 22605-Anwz Destruction, 08-0103/09/2016 82328-Mqek Destruction, 08-0107/26/2017 03439-Uafl Destruction, 08-0109/16/2017 57441-Kvut Destruction, 08-0101/06/2018 29360-Kfur Destruction, 08-0104/07/2018 21520-Wlzv Destruction, 08-0106/30/2018 Insurance Providers Payer Name Payer Address Payer Phone Subscriber Number Group Number Insured Name Patient Relationship to Insured Coverage Start Date Coverage End Date Medicare National [employer] [address] [place] [address] [id number] Luis Haines Self - patient is the insured [facility] [address] [place] [address] [id number] Luis Haines Self - patient is the insured Medical (General) History Medical History History ICD Code osteoarthritis Knee Pain Reflux Measles Mumps Chicken pox Skin disorder Interstitial cystitis Surgical History Surgery Date(Month/Year) hysterectomy 1997 colonoscopy, endoscopy 03/2021
--- OUTSIDE RECORDS SUMMARY | 2025-02-26 12:38 | XMS_ITS | Patient Health Record ---
Author Organization Timoteo Hernandez MD Address [address] [place] [phone] Care Team Providers Care Store Custodian Name Role Phone Timoteo Hernandez Primary Care Provider Allergies Allergen (clinical drug ingredient) Drug/Non Drug Allergy documented on EMR Reaction Allergy Type Onset Date Status meperidine Demerol dizzy nauseau Drug Allergy Ac tive Results Component Value Reference Range Notes Complete Blood Count Auto Di ff Reviewed date:11/10/2024 10:25:40 AM Interpretation: Performing Lab:[facility], [address] [place] [phone] Notes/Report: White Blood Count 5.1 4.8-10.8 X10*3/uL [...] NRBC Abs Auto 0.000 0.0-0.012 X10*3/uL Comprehensive Barclay. Panel Fa st Reviewed date:11/10/2024 04:02:28 PM Interpretation: Performing Lab:[facility], [address] [place] [phone] Notes/Report: Sodium 143 135-145 mmol/L Potassium 3.8 [...] Panel Reviewed date:11/10/2024 11:28:55 AM Interpretation: Performing Lab:[facility], [address] [place] [phone] Notes/Report: Triglycerides 80 <150 mg/dL Desirable Triglyceride: [...] Total Reviewed date:11/10/2024 03:35:55 PM Interpretation: Performing Lab:[address] [phone] Notes/Report: Vitamin D 25-OH Total 60.0 >30 [...] t Reviewed date:11/10/2024 03:41:26 PM Interpretation: Performing Lab:[facility], [address] [place] [phone] Notes/Report: Urine, Clean Catch Color Urine Yellow Appearance Urine Clear PH 6.0 5.0-9.0 Glucose Urine UA Negative Negative mg/dL Urine Blood Negative Negative Specific [place] - Urine 1.010 1.005-1.025 Urine Protein Negative Neg-Trace mg/dL Urine Ketones Negative Negative mg/dL Nitrite Urine Negative Negative Leukocyte Esterase Urine Negative Negative RBC Urine 0-2 0-2 /HPF WBC Urine 0-5 0-5 /HPF Squamous Epithelial Cell Urine 0-2 0-2 /HPF Bacteria Urine None Seen None Seen Hyaline Casts Urine 0-2 0-2 /LPF XR pelvis 1-2V Reviewed date:09/25/2024 12:48:59 PM Interpretation: Performing Lab: Notes/Report: [facility] [address] [place] [address] XRay Report Signed Patient: Luis Haines MR#: [id number] : 1955 Acct:[id number] Age/Sex: 69 / F ADM Date: 09/21/24 Loc: HO.HOSX Attending Dr: Reginald Islas MD Ordering Physician: Reginald Islas MD Date of Service: 09/21/24 Procedure(s): XR pelvis 1-2V Accession Number(s): [id number] cc: Timoteo Hernandez MD; Reginald Islas MD [...] Sameer Dukes MD 09/25/2024 08:27 AM EDT Dictated By: Sameer Dukes MD Signed By: <Electronically signed by Sameer Dukes MD in OV> 09/25/24826 DD/ 41 TD/TT: 09/21/241046 Banking And Finance Instructor: [facility] [address] [place] [id number] XRay Report Signed Patient: Nakul Haines MR#: [id number] : 1955 Acct:[id number] Age/Sex: 69 / F ADM Date: 09/21/24 Loc: HO.HOSX Attending Dr: Reginald lepe MD Ordering Physician: Reginald Islas MD Date of Service: 09/21/24 Procedure(s): XR pel vis 1-2V Accession Number(s): [id number] cc: Timoteo Hernandez MD; Reginald Islas MD EXAMINATION: XR PELV IS 1-2 VIEWS HISTORY: M25.559 - P ain in unspecified hip COMPARISON: Comparis on is made with the prior examination dated 07/02/2023. FINDINGS: A single A P view of the pelvis is submitted. Osseous mineralization is no rmal. There is no fracture or dislocation. There is moderate osteoarthri tis of both hips with progressive joint space narrowing medially o n the right and superiorly on the left when compared to the prio r study. The sacroiliac joints are maintained. The soft tissues are unremarkable. X R/XR pelvis 1-2V IMPRESSION: Moderate osteoarthri tis of both hips with progression since the prior study. Electronically flor d by: Sameer Dukes MD 09/25/2024 08:27 AM EDT RP Dictated By: Sameer Dukes MD Signed By: <Andrews brantley signed by Sameer Dukes MD in OV> 09/25/24826 DD/ 41 TD/TT: 09/21/241046 Banking And Finance Instructor: Pathology Reviewed date:02/22/2025 07:58:21 PM Interpretation: Performing Lab:[facility], [address] [place] [phone] Notes/Report: ------ Name: Macho Haines Age/Sex: 69/F : 1955 Unit#: [id number] Attend Dr: Sameer Gaytan MD Re02/21/25 Status : [facility] Location: [facility] Disch: ------ SPEC : [id number] RECD : 02/21/25 [facility] NUM: [id number] CHARLES: 02/21/[address] [facility] [address]: Sameer Gaytan MD ENTERED: 02/21/25- 48 SP TYPE: Surgical OTHR DR: Timoteo Hernandez MD ORDERED: HE Stain/3, Gross Micro L4 Diagnosis Cecum, polypectomies (3): Fragments of tubular adenomata; negative for high-grade dysplasia or carcinoma. Clinical History Pre-Op Dx: Positive for blood in stool Post-Op Dx: Colon po lyps, diverticulosis Microscopic Description Microscopic sections reviewed. Material Received Colon polyps Gross Description Received in formalin labeled ?colon polyps? are fragments of de santiago-white and pink white soft tissue ranging from 0.2-0.4 cm in greatest dimension, forming in aggregate that measures 0.9 x 0.6 x 0.2 cm which is wrapped in lens paper and entirely submitted for microscopic examination, multipl e pieces in cassette A. ([facility]) IHC S/NG Disclaimer NOTE: Unless otherwi se stated, all tissue is formalin-fixed and paraffin-embedded. Some or all of the immunohistochemical tests reported herein may have been developed and their performance characteristics determined by [facility]. They have not been cleared or appr gaby by the U.S. Food and Drug Administration (FDA). However, the FDA has determined that such clearance or approval is not necessary. This laboratory is certified under the Clinical Laboratory Improvement Amendments of 1988 (CLIA) as qualified to perform high comp lexity clinical laboratory testing. Copies To: Timoteo Hernandez MD [facility] [address] [place] [address] CONTINUED ON NEXT PAGE ------ Name: Macho Haines Esperanza Age/Sex: 69/F : 1955 Unit#: [id number] Attend Dr: Sameer Gaytan MD Re02/21/25 Status : [facility] Location: [facility] Disch: ------ SPEC : [id number] RECD : 02/21/25 STATUS: [facility] NUM: [id number] CHARLES: 02/21/[address] [facility] [address]: Sameer Gaytan MD ENTERED: 02/21/25-10 48 SP TYPE: Surgical OTHR DR: Timoteo Hernandez MD ORDERED: HE Stain/3, Gross Micro L4 Copies To: (Continued) Sameer Gaytan MD [address] [place], [place] [id number] ------ Signed (signature on file) John Massey MD 02/22/25 1425 ------ END OF REPORT Reason For Referral Reason positive Guaiac wi [...] Date End Date Status Colace 100 MG 1 capsule Orally Onc e a day Active Clobetasol Propionate 0.05 % 1 application Externally Twice a day for 10 day(s) Active Vitamin D3 2000 UNIT 1 tablet Orally Onc e a day 10/08/2017 Active Meclizine HCl 12.5 MG TAKE 1 TABLET BY M OUTH EVERY DAY NEEDED FOR 90 DAYS for 90 Active Advil 200 MG 3 tabs Orally every 6 hrs Active Antivert 12.5 MG TAKE 1 TABLET BY PRISCILLA TH 3 TIMES A DAY for 13 Not-Taking Immunizations Vaccine Route Administration Date Status Comme nts Flu Vaccine Unknown 04/30/2014 Administered [facility] TDaP IM Intramuscular 08/13/2014 Administered Shingles IM Intramuscular 08/21/2014 Administered Flu Vaccine IM Intramuscular 05/09/2015 Administered [facility] Fluarix Quadrivalent Unknown 04/28/2016 Administered [facility] PPSV23 (Pnemovax) IM Intramuscular 09/17/2016 Administered Prevnar 13 IM Intramuscular 10/08/2017 Administered Fluarix Quadrivalent Unknown 05/03/2018 Administered pt was given the vaccine at [facility] Fluarix Quadrivalent IM Intramuscular 05/12/2019 Administered pt was given th e vaccine at [facility] in [place]. Fluarix Quadrivalent Unknown 04/18/2020 Administered [facility] Influenza High Dose IM Intramuscular 05/06/2021 [...] Problem Status W/U Status Risk Notes Problem 55697818 Lymphocytosis (D72.820) Active confirmed Problem 48153744 Vitamin D deficiency (E55.9) Active confirmed Problem 477243740 Gastroesophageal reflux disease without esophagitis (K21.9) Active confirmed Problem Osteoporosis (36238911) Osteoporosis (M81.0) Active confirmed Problem 059374353 Osteopenia determined by x-ray (M85.80) Active confirmed Problem 22100824 Esophageal dysphagia (R13.10) Active confirmed Problem 1586981806815659 Arthritis of le ft hip (M16.12) Active confirmed Problem 637804272 Right renal mass (N28.89) Active confirmed Vital [...] Timoteo Hernandez MD [address] [place] [phone] 11/10/2024 Timoteo Hernandez Lymphocytosis D72.82 0 and Vitamin D deficiency E55.9 Timoteo Hernandez MD [address] [place] [id number] 05/05/2024 Timoteo Hernandez Encounter for immunization Z23 Timoteo Hernandez MD [address] [place] [address] [address] [place] [phone] 11/17/2024 Timoteo Hernandez Guaiac + stool R19.5 ; Vertigo R42 ; Vitamin D deficiency E55.9 ; Colon cancer screening Z12.11 and Depression screening Z13.31 Assessments Encounter Date Diagnosis (ICD Code) Assessment Notes Treatment Notes Treatment Clinical Notes Section Notes 11/10/2024 Lymphocytosis (ICD-10 - D72.820) 05/05/2024 Encounter for immunization (ICD-10 - Z23) [...] 09/16/2023 Next Appt Details Provider Name:Timoteo whitehead, 11/15/2025 07:00:00 AM, [address] [place] [address], [address] [place] [address], [phone], Provider Name:Timoteo whitehead, 11/22/2025 09:30:00 AM, [address] [place] [address], [address], [place], [place], [phone], Insurance Providers Payer Name Payer Address Payer Phone Subscriber Number Group Number Insured Name Patient Relationship to Insured Coverage Start Date Coverage End Date [employer] [address] [place] [address] [id number] Luis Haines Self - patient is the insured [facility] [address] [place] [phone] [id number] Luis Haines Self - patient is the insured Medical (General) History Medical History History ICD Code enbetoepfgl54/08/2011 father with colon cancer/repeat [address] Gaytan. 02/21/25 colonoscopy repeat 5y sees scientific informatics analyst yearly. discussed the need for shing le vaccination and she is to check with insurance 2020 colonoscopy 2020, 5yr repeat Surgical History Surgery Date(Month/Year) hysterectomy 1998
--- OUTSIDE RECORDS SUMMARY | 2025-02-26 12:39 | XMS_ITS | Clinical Summary ---
Author Organization [facility] Address [address] [place] [phone] Phone Care Team Providers Care Credit Operations Processor Name Role Phone Timoteo Hernandez MD Primary Care Provider Allergies Active Allergy Reactions Criticality Noted Date Comments Meperidine 11/23/2023 Other Reaction(s): dizzy nauseau Demerol IV Medications clobetasol (TEMOVATE) 0.05 % cream 1 Application . Active docusate sodium (COLACE) 100 MG capsule 1 capsule. Active ibuprofen (ADVIL MIGRAINE) 200 mg capsule 3 tabs Orally every 6 hrs Active meclizine (ANTIVERT) 12.5 mg tablet 1 tablet as needed Orally Once a day for 90 days Active cholecalciferol (VITAMIN D3) 2,000 unit tablet Take 2,000 Units by mouth daily. Active Social History Tobacco Use Types Packs/Day Years Used Date Smoking Tobacco: Former Cigarettes 1.5 17 1 968 - 1984 Smokeless Tobacco: Never Education Answer Date Recorded Are you interested in more education? Not on rj e 11/02/2023 Are you concerned about learning? Not on file 11/02/2023 No 11/02/2023 No 11/02/2023 Digital Access Answer Date Recorded No 11/02/2023 No 11/02/2023 Reliable internet access at home? Not on file 11/02/2023 Device with a working camera? Not on file Comments Unknown Sex and Gender Information Value Date Recorded Sex Assigned at Female 11/02/2023 12:25 PM EDT Legal Sex Female 12:18 PM EDT Gender Identity Female 11/02/2023 12:25 PM EDT Sexual Orientation Straight 11/02/2023 12 :25 PM EDT Last Filed Vital Signs Vital Sign Reading Time Taken Comments Blood Pressure 121/72 11/23/2023 3:50 PM EDT Pulse 86 11/23/2023 3:50 PM EDT Temperature - - Respiratory Rate - - Oxygen Saturation - - Inhaled Oxygen Concentration - - Weight 65.8 kg (145 lb) 05/19/2024 3:17 PM EDT Height 157.5 cm (5' 2 ) 05/19/2024 3:17 PM EDT Body Mass Index 26.52 05/19/2024 3:17 PM EDT Plan of Treatment Upcoming Encounters Date Type Department Care Team (Late st Contact Info) Description 03/05/2025 10:00 AM EDT Telemedicine - audio only Department of Urology [address] [facility] [address] [place] [address] Shyla Razo, MARKETING DEVELOPMENT MANAGER [address] [address] [email or web address] Health Maintenance Due Date Last Done Comments Adult Td,Tdap Booster 1955 LIPID PANEL 1955 DEPRESSION SCREENING 1966 SMOKING Hx and SMOKELESS TOBACCO SCREENING 1967 HEPATITIS C SCREENING 1972 MAMMOGRAM 1994 COLOGUARD 1999 COLONOSCOPY 1999 COLORECTAL CANCER SCREENING 1999 FIT TEST 1999 FOBT 1999 SIGMOIDOSCOPY 1999 VIRTUAL COLONOSCOPY 1999 ZOSTER VACCINES (1 of 2) 2004 OSTEOPOROSIS SCREENING INITI AL (ONE-TIME) 2019 PNEUMOCOCCAL VACCINES (50+ years) (3 of 3 - PCV20 or PCV21) 10/08/2022 10/08/2017, 09/17/2016 COVID-19 VACCINE (4 - 2023-2 5 season) 2024 07/17/2021, 10/11/2020, 09/20/2020 RSV VACCINE (1 - 1-dose 75+ series) 2029 HEPATITIS A VACCINES Aged Out No long er eligible based on patient's age to complete this topic HIB VACCINES Aged Out No longer eligi ble based on patient's age to complete this topic MENINGOCOCCAL VACCINES (ACWY) Aged Out No longer eligible based on patient's age to complete this topic MENINGOCOCCAL VACCINES (B) Aged Out N o longer eligible based on patient's age to complete this topic Medical Devices Not on file Insurance MEDICARE PART A & B [facility] MEDICARE SUPPLEMENT MEDICARE PART A & B [facility] [place] [id number] MEDICARE PART A & B [facility] [place] [phone] MEDICARE PART A & B Whatever MEDICARE SUPPLEMENT MEDICARE PART A & B Whatever MEDICARE SUPPLEMENT MEDICARE PART A & B [facility] SUPPLE[facility] Care Teams Credit Operations Processor Relationship Specialty Start Date End Date Timoteo Hernandez MD [address] [place] [address] [place] [address] PCP - General Internal Medicine 11/02/23 Additional Source Comments The information contained in this document represents components of the legal health record. It is not the complete legal health record.[facility]
[2025-02-26 12:52] VITALS: BMI 25.6
== END 2025-02-26 13:15 | disposition home or self-care (01) ==
LOC: HO.HOS 12:33
PROVIDERS: PCP Internal Medicine; Visit Provider Orthopaedic Surgery
DX: M16.12 Unilateral primary osteoarthritis, left hip (principal)
CPT/HCPCS: 99213

== ENCOUNTER → 2025-02-26 12:32 | Outpatient (BNVA) | payer MEDICARE, OTHER, SELFPAY | PROVIDERS: PCP Internal Medicine; Visit Provider Orthopaedic Surgery | DX: M16.12 Unilateral primary osteoarthritis, left hip (principal) | CPT/HCPCS: 99212 ==